=== PATIENT | male | born 1960 | race Two or more races ===

== ENCOUNTER 2022-03-22 09:54 | Inpatient (IN) | payer MEDICAID, OTHER ==
[~2022-03-22] VITALS: Ht 170.2 cm; Wt 91.7 kg
[2022-03-22] MEDS ORDERED: MORPHINE SULFATE 4 MG/ML CPJ (NOT FOR IM USE) IV ONE (11:00)
[2022-03-22 11:03] LABS: HEMATOCRIT. 36.9 % (42.0-52.0); HEMOGLOBIN. 12.2 g/dL (14.0-18.0); MEAN CORPUSCULAR VOLUME 93.5 fL (80.0-94.0); RED BLOOD CELL COUNT 3.95 mill/uL (4.7-6.1); RED CELL DISTRIBUTION WIDTH 18.5 % (11.6-14.6)
[2022-03-22 11:07] LABS: CLARITY URINE CLEAR (CLEAR); COLOR URINE YELLOW (YELLOW); KETONES URINE NEGATIVE (NEGATIVE); LEUKOCYTE ESTERASE URINE NEGATIVE (NEGATIVE); NITRITE URINE NEGATIVE (NEGATIVE); OCCULT BLOOD URINE NEGATIVE (NEGATIVE); PROTEIN URINE NEGATIVE (NEGATIVE); SPECIFIC GRAVITY URINE 1.039 (1.005-1.030); UROBILINOGEN URINE 0.2 E.U./dL (0.2-1.0)
[2022-03-22 11:07] LABS: INR 1.2; PROTHROMBIN TIME 12.7 sec (9.6-11.0)
[2022-03-22 11:09] LABS: CHLORIDE 106 mEq/L (98-107)
[2022-03-22 11:17] LABS: BETA HYDROXYBUTYRATE 0.3 mMol/L (0.0-0.3)
[2022-03-22 12:10] LABS: MEAN PLATELET VOLUME 10.2 fl (7.4-10.4); PLATELET 19 x1000/uL (130-400)
[2022-03-22 12:14] LABS: PLATELET ESTIMATE MARKEDLY DECREASED
[2022-03-22] MEDS ORDERED: CEFTRIAXONE 1 G PREMIX 50 ML IV ONE (12:30)
[2022-03-22] MEDS ORDERED: METRONIDAZOLE 500 MG PREMIX 100 ML IV ONE (12:30)
[2022-03-22] MEDS: PANTOPRAZOLE SODIUM 40 MG/VIAL IV SCH (13:53)
[2022-03-22 14:53] LABS: TOTAL IRON BINDING CAPACITY 251 ug/dL (250-450)
[2022-03-22 15:07] LABS: FERRITIN 121 ng/mL (22-322)
[2022-03-22 15:22] LABS: VITAMIN B12 SERUM >2000 pg/mL pg/mL (211-911)
[2022-03-22 16:29] LABS: HEPATITIS B SURFACE ANTIGEN NEGATIVE
[2022-03-22] MEDS ORDERED: ONDANSETRON HCL 4MG/2ML INJ IV PRN (16:30)
[2022-03-22] MEDS ORDERED: DEXTROSE 50% WATER 50ML SYRINGE IV PRN (16:30)
[2022-03-22] MEDS: HYDROCODONE/ACETAMINOPHEN 5/325MG TABLET PO PRN (17:57)
[2022-03-22] MEDS: BLOOD SUGAR DIAGNOSTIC STRIP TEST SCH ×2 (18:02→21:00)
[2022-03-22] MEDS: INSULIN LISPRO 100 UNITS/ML SUBCUT SCH ×2 (18:35→21:00)
[2022-03-22 23:15] VITALS: BP 103/61
[2022-03-22 23:52] VITALS: BP 105/92
[2022-03-23] MEDS: HYDROCODONE/ACETAMINOPHEN 5/325MG TABLET PO PRN ×5 (00:19→22:02)
[2022-03-23] MEDS ORDERED: EMPA25TA PO (03:11)
[2022-03-23] MEDS ORDERED: ATOR10TA MT (03:11)
[2022-03-23] MEDS ORDERED: GLIP10TA10 PO (03:11)
[2022-03-23] MEDS ORDERED: MIRT-111 PO (03:11)
[2022-03-23 04:26] VITALS: BP 108/48
[2022-03-23] MEDS: BLOOD SUGAR DIAGNOSTIC STRIP TEST SCH ×4 (06:53→21:31)
[2022-03-23 07:05] LABS: CHLORIDE 108 mEq/L (98-107)
[2022-03-23 08:00] VITALS: BP 111/51
[2022-03-23 08:03] LABS: HEMATOCRIT. 35.1 % (42.0-52.0); HEMOGLOBIN. 11.5 g/dL (14.0-18.0); MEAN CORPUSCULAR HEMOGLOBIN 30.8 pg (28.0-32.0); MEAN CORPUSCULAR VOLUME 93.7 fL (80.0-94.0); MEAN PLATELET VOLUME 10.7 fl (7.4-10.4); RED BLOOD CELL COUNT 3.75 mill/uL (4.7-6.1); RED CELL DISTRIBUTION WIDTH 18.7 % (11.6-14.6)
[2022-03-23 08:07] LABS: PLATELET 16 x1000/uL (130-400)
[2022-03-23] MEDS: PANTOPRAZOLE SODIUM 40 MG/VIAL IV SCH (09:11)
[2022-03-23] MEDS: INSULIN LISPRO 100 UNITS/ML SUBCUT SCH ×4 (09:26→21:31)
[2022-03-23 12:00] VITALS: BP 109/48
[2022-03-23] MEDS ORDERED: CEFTRIAXONE 1 G PREMIX 50 ML IV SCH (12:00)
[2022-03-23 16:00] VITALS: BP 107/52
[2022-03-23] MEDS: IRON SUCROSE COMPLEX 100 MG/5 ML ML IV SCH (17:58)
[2022-03-23] MEDS: CEFTRIAXONE 1,000 MG in DEXTROSE 5% WATER 50 ML IV SCH (18:56)
[2022-03-23 20:00] VITALS: BP 114/75
[2022-03-24] VITALS (16 sets, daily range): BP systolic 84–118; BP diastolic 50–76
[2022-03-24] MEDS: ACETAMINOPHEN 325MG TABLET PO PRN (00:14)
[2022-03-24] MEDS: HYDROCODONE/ACETAMINOPHEN 5/325MG TABLET PO PRN ×2 (02:53→09:04)
[2022-03-24] MEDS: BLOOD SUGAR DIAGNOSTIC STRIP TEST SCH ×4 (06:19→20:45)
[2022-03-24 06:49] LABS: HEMATOCRIT. 34.6 % (42.0-52.0); HEMOGLOBIN. 11.6 g/dL (14.0-18.0); MEAN CORPUSCULAR HEMOGLOBIN 31.4 pg (28.0-32.0); MEAN CORPUSCULAR VOLUME 93.4 fL (80.0-94.0); MEAN PLATELET VOLUME 9.9 fl (7.4-10.4); RED BLOOD CELL COUNT 3.71 mill/uL (4.7-6.1); RED CELL DISTRIBUTION WIDTH 18.2 % (11.6-14.6)
[2022-03-24 06:55] LABS: CHLORIDE 108 mEq/L (98-107)
[2022-03-24] MEDS ORDERED: ALBUMIN HUMAN 25GM/100ML (25%) IV SCH (07:00)
[2022-03-24 07:47] LABS: PLATELET 16 x1000/uL (130-400)
[2022-03-24] MEDS: INSULIN LISPRO 100 UNITS/ML SUBCUT SCH ×4 (08:05→20:52)
[2022-03-24 08:07] LABS: NUCLEATED RED BLOOD CELLS 1 /100 WBC; PLATELET ESTIMATE MARKEDLY DECREASED
[2022-03-24] MEDS: PANTOPRAZOLE SODIUM 40 MG/VIAL IV SCH (09:02)
[2022-03-24] MEDS ORDERED: NALOXONE HCL 0.4MG/ML VIAL IV PRN (10:45)
[2022-03-24] MEDS: MORPHINE SULFATE 2 MG/ML CPJ (NOT FOR IM USE) IV PRN ×3 (12:13→23:07)
[2022-03-24 12:57] LABS: PLATELET ESTIMATE MARKEDLY DECREASED
[2022-03-24] MEDS: IRON SUCROSE COMPLEX 100 MG/5 ML ML IV SCH (14:00)
[2022-03-24 16:48] LABS: HEMATOCRIT 34.8 % (42.0-52.0); HEMOGLOBIN 11.4 g/dL (14.0-18.0)
[2022-03-24 17:40] LABS: INR 1.3; PROTHROMBIN TIME 13.7 sec (9.6-11.0)
[2022-03-24] MEDS: CEFTRIAXONE 1,000 MG in DEXTROSE 5% WATER 50 ML IV SCH (17:52)
[2022-03-25 00:03] VITALS: BP 121/63
[2022-03-25 04:00] VITALS: BP 108/67
[2022-03-25] MEDS: MORPHINE SULFATE 2 MG/ML CPJ (NOT FOR IM USE) IV PRN ×4 (04:15→18:53)
[2022-03-25] MEDS: BLOOD SUGAR DIAGNOSTIC STRIP TEST SCH ×4 (05:32→21:00)
[2022-03-25] MEDS: INSULIN LISPRO 100 UNITS/ML SUBCUT SCH ×4 (05:38→20:59)
[2022-03-25 05:46] LABS: HEMATOCRIT. 35.3 % (42.0-52.0); HEMOGLOBIN. 11.8 g/dL (14.0-18.0); MEAN CORPUSCULAR HEMOGLOBIN 31.2 pg (28.0-32.0); MEAN CORPUSCULAR VOLUME 93.6 fL (80.0-94.0); MEAN PLATELET VOLUME 11.5 fl (7.4-10.4); RED BLOOD CELL COUNT 3.77 mill/uL (4.7-6.1); RED CELL DISTRIBUTION WIDTH 18.5 % (11.6-14.6)
[2022-03-25 05:52] LABS: PLATELET 25 x1000/uL (130-400)
[2022-03-25 06:06] LABS: CHLORIDE 105 mEq/L (98-107)
[2022-03-25 06:52] LABS: PLATELET ESTIMATE MARKEDLY DECREASED
[2022-03-25 08:00] VITALS: BP 105/63
[2022-03-25] MEDS: PANTOPRAZOLE SODIUM 40 MG/VIAL IV SCH (08:17)
[2022-03-25 12:00] VITALS: BP 116/69
[2022-03-25] MEDS ORDERED: DIAZEPAM 5 MG/ML 2ML CPJ IV NR (13:45)
[2022-03-25] MEDS: IRON SUCROSE COMPLEX 100 MG/5 ML ML IV SCH (15:42)
[2022-03-25 16:00] VITALS: BP 121/72
[2022-03-25] MEDS: CEFTRIAXONE 1,000 MG in DEXTROSE 5% WATER 50 ML IV SCH (18:12)
[2022-03-25 20:00] VITALS: BP 148/61
[2022-03-26] VITALS: BP 104/59
[2022-03-26 04:00] VITALS: BP 103/64
[2022-03-26] MEDS: MORPHINE SULFATE 2 MG/ML CPJ (NOT FOR IM USE) IV PRN ×6 (06:00→22:43)
[2022-03-26] MEDS: BLOOD SUGAR DIAGNOSTIC STRIP TEST SCH ×4 (06:57→20:57)
[2022-03-26] MEDS: INSULIN LISPRO 100 UNITS/ML SUBCUT SCH ×4 (07:14→20:57)
[2022-03-26 07:54] LABS: HEMATOCRIT. 34.9 % (42.0-52.0); HEMOGLOBIN. 11.5 g/dL (14.0-18.0); MEAN CORPUSCULAR HEMOGLOBIN 30.9 pg (28.0-32.0); MEAN CORPUSCULAR VOLUME 93.4 fL (80.0-94.0); MEAN PLATELET VOLUME 10.6 fl (7.4-10.4); RED BLOOD CELL COUNT 3.73 mill/uL (4.7-6.1); RED CELL DISTRIBUTION WIDTH 18.3 % (11.6-14.6)
[2022-03-26 08:00] VITALS: BP 109/71
[2022-03-26 08:07] LABS: CHLORIDE 102 mEq/L (98-107)
[2022-03-26 08:11] LABS: PLATELET 30 x1000/uL (130-400)
[2022-03-26] MEDS: PANTOPRAZOLE SODIUM 40 MG/VIAL IV SCH (08:36)
[2022-03-26] MEDS ORDERED: DIAZEPAM 5 MG/ML 2ML CPJ IV NR (09:20)
[2022-03-26 11:11] LABS: PLATELET ESTIMATE MARKEDLY DECREASED
[2022-03-26 12:00] VITALS: BP 122/71
[2022-03-26] MEDS ORDERED: DIAZEPAM 5 MG/ML 2ML CPJ IV SCH (13:45)
[2022-03-26 16:00] VITALS: BP 109/69
[2022-03-26] MEDS: CEFTRIAXONE 1,000 MG in DEXTROSE 5% WATER 50 ML IV SCH (17:16)
[2022-03-26] MEDS: ACETAMINOPHEN 325MG TABLET PO PRN (19:38)
[2022-03-26 20:00] VITALS: BP 125/72
[2022-03-27] VITALS (9 sets, daily range): BP systolic 99–136; BP diastolic 49–85
[2022-03-27] MEDS: MORPHINE SULFATE 2 MG/ML CPJ (NOT FOR IM USE) IV PRN ×4 (04:35→20:28)
[2022-03-27] MEDS: ACETAMINOPHEN 325MG TABLET PO PRN ×3 (05:44→23:33)
[2022-03-27 07:17] LABS: HEMATOCRIT. 35.8 % (42.0-52.0); HEMOGLOBIN. 11.8 g/dL (14.0-18.0); MEAN CORPUSCULAR HEMOGLOBIN 30.9 pg (28.0-32.0); MEAN CORPUSCULAR VOLUME 93.1 fL (80.0-94.0); MEAN PLATELET VOLUME 10.4 fl (7.4-10.4); RED BLOOD CELL COUNT 3.84 mill/uL (4.7-6.1); RED CELL DISTRIBUTION WIDTH 17.7 % (11.6-14.6)
[2022-03-27 07:37] LABS: CHLORIDE 102 mEq/L (98-107)
[2022-03-27] MEDS: BLOOD SUGAR DIAGNOSTIC STRIP TEST SCH ×4 (08:30→21:00)
[2022-03-27] MEDS: PANTOPRAZOLE SODIUM 40 MG/VIAL IV SCH (08:48)
[2022-03-27] MEDS: INSULIN LISPRO 100 UNITS/ML SUBCUT SCH ×4 (08:50→20:28)
[2022-03-27] MEDS ORDERED: GADOTERATE MEGLUMINE 5 MMOL/10 ML VIAL IV ONE (09:30)
[2022-03-27 13:40] LABS: PLATELET ESTIMATE MARKEDLY DECREASED
[2022-03-27 13:41] LABS: PLATELET 37 x1000/uL (130-400)
[2022-03-27] MEDS ORDERED: IPRATROPIUM/ALBUTEROL 0.5-3(2.5)MG/3ML NEB HHN PRN (14:00)
[2022-03-27] MEDS: CEFTRIAXONE 1,000 MG in DEXTROSE 5% WATER 50 ML IV SCH (17:57)
[2022-03-28] VITALS (14 sets, daily range): BP systolic 92–129; BP diastolic 56–76
[2022-03-28] MEDS: MORPHINE SULFATE 2 MG/ML CPJ (NOT FOR IM USE) IV PRN ×5 (00:36→20:57)
[2022-03-28] MEDS: BLOOD SUGAR DIAGNOSTIC STRIP TEST SCH ×4 (06:26→20:58)
[2022-03-28 07:49] LABS: INR 1.3; PROTHROMBIN TIME 13.4 sec (9.6-11.0)
[2022-03-28 07:53] LABS: CHLORIDE 100 mEq/L (98-107); HEMATOCRIT. 33.6 % (42.0-52.0); HEMOGLOBIN. 11.2 g/dL (14.0-18.0); MEAN CORPUSCULAR HEMOGLOBIN 31.4 pg (28.0-32.0); MEAN CORPUSCULAR VOLUME 93.8 fL (80.0-94.0); MEAN PLATELET VOLUME 10.3 fl (7.4-10.4); RED BLOOD CELL COUNT 3.59 mill/uL (4.7-6.1); RED CELL DISTRIBUTION WIDTH 17.6 % (11.6-14.6)
[2022-03-28] MEDS: INSULIN LISPRO 100 UNITS/ML SUBCUT SCH ×4 (08:10→20:58)
[2022-03-28 08:11] LABS: PLATELET 50 x1000/uL (130-400)
[2022-03-28] MEDS: PANTOPRAZOLE SODIUM 40 MG/VIAL IV SCH (09:30)
[2022-03-28 10:28] LABS: ATYPICAL LYMPHOCYTES 1
[2022-03-28 10:29] LABS: PLATELET ESTIMATE DECREASED
[2022-03-28] MEDS: SODIUM CHLORIDE 0.9% 1,000 ML IV SCH (11:20)
[2022-03-28] MEDS: ACETAMINOPHEN 325MG TABLET PO PRN (11:20)
[2022-03-28] MEDS: CEFTRIAXONE 1,000 MG in DEXTROSE 5% WATER 50 ML IV SCH (17:13)
[2022-03-29] VITALS (30 sets, daily range): BP systolic 98–157; BP diastolic 50–98
[2022-03-29] MEDS: ACETAMINOPHEN 325MG TABLET PO PRN (00:30)
[2022-03-29] MEDS: MORPHINE SULFATE 2 MG/ML CPJ (NOT FOR IM USE) IV PRN ×2 (01:01→05:25)
[2022-03-29] MEDS: SODIUM CHLORIDE 0.9% 1,000 ML IV SCH ×3 (01:01→23:49)
[2022-03-29 05:58] LABS: HEMATOCRIT. 33.3 % (42.0-52.0); HEMOGLOBIN. 11.1 g/dL (14.0-18.0); MEAN CORPUSCULAR HEMOGLOBIN 31.3 pg (28.0-32.0); MEAN CORPUSCULAR VOLUME 93.9 fL (80.0-94.0); PLATELET 55 x1000/uL (130-400); RED BLOOD CELL COUNT 3.55 mill/uL (4.7-6.1); RED CELL DISTRIBUTION WIDTH 17.7 % (11.6-14.6)
[2022-03-29 06:07] LABS: CHLORIDE 99 mEq/L (98-107)
[2022-03-29] MEDS ORDERED: THROMBIN (BOVINE) 5000 UNITS/VIAL TOP ONE (06:34)
[2022-03-29] MEDS ORDERED: LIDOCAINE HCL/EPINEPHRINE 1%-EPI 1:100,000 20 ML VIAL ONE (06:34)
[2022-03-29] MEDS ORDERED: GENTAMICIN SULF 40MG/ML 2ML VIAL ONE (06:34)
[2022-03-29] MEDS: BLOOD SUGAR DIAGNOSTIC STRIP TEST SCH ×4 (06:41→21:32)
[2022-03-29] MEDS ORDERED: PROPOFOL 10MG/ML 100ML 200 ML IV ONE (07:02)
[2022-03-29] MEDS ORDERED: ROCURONIUM BROMIDE 10MG/ML VIAL 5ML IV ONE (07:02)
[2022-03-29] MEDS ORDERED: ONDANSETRON HCL 4MG/2ML INJ ONE (07:02)
[2022-03-29] MEDS ORDERED: NEOSTIGMINE METHYLSULFATE 1MG/ML 10 ML VIAL ONE (07:02)
[2022-03-29] MEDS ORDERED: DEXAMETHASONE 4MG/ML 1ML VIAL ONE (07:02)
[2022-03-29] MEDS ORDERED: FENTANYL CITRATE/PF 50MCG/ML 2ML VIAL ONE (07:03)
[2022-03-29] MEDS ORDERED: GLYCOPYRROLATE 0.2 MG/ML 2ML VIAL ONE ×2 (07:03)
[2022-03-29] MEDS ORDERED: MIDAZOLAM HCL 2 MG/2 ML VIAL ONE (07:03)
[2022-03-29] MEDS ORDERED: PROPOFOL 200MG/20ML VIAL IV ONE (07:16)
[2022-03-29] MEDS: INSULIN LISPRO 100 UNITS/ML SUBCUT SCH ×4 (08:10→21:42)
[2022-03-29] MEDS ORDERED: MEPERIDINE HCL/PF 25MG/ML CPJ IV PRN (09:00)
[2022-03-29] MEDS ORDERED: LABETALOL 5MG/ML SYR 20 MG/4 ML SYRINGE IV PRN (09:00)
[2022-03-29] MEDS: PANTOPRAZOLE SODIUM 40 MG/VIAL IV SCH (09:00)
[2022-03-29] MEDS ORDERED: HYDROMORPHONE HCL/PF 2MG/ML CPJ IV PRN (09:00)
[2022-03-29] MEDS ORDERED: ONDANSETRON HCL 4MG/2ML INJ IV PRN (09:00)
[2022-03-29] MEDS ORDERED: HYDROMORPHONE HCL/PF 2MG/ML CPJ ONE (09:13)
[2022-03-29 11:26] LABS: HEMATOCRIT. 34.9 % (42.0-52.0); HEMOGLOBIN. 11.4 g/dL (14.0-18.0); MEAN CORPUSCULAR HEMOGLOBIN 30.9 pg (28.0-32.0); MEAN CORPUSCULAR VOLUME 94.5 fL (80.0-94.0); MEAN PLATELET VOLUME 10.1 fl (7.4-10.4); PLATELET 76 x1000/uL (130-400); RED CELL DISTRIBUTION WIDTH 17.5 % (11.6-14.6)
[2022-03-29 14:00] LABS: PLATELET ESTIMATE DECREASED
[2022-03-29 14:41] LABS: PLATELET ESTIMATE DECREASED
[2022-03-29] MEDS: MORPHINE SULFATE 4 MG/ML CPJ (NOT FOR IM USE) IV PRN ×4 (15:07→23:43)
[2022-03-29] MEDS: CEFTRIAXONE 1,000 MG in DEXTROSE 5% WATER 50 ML IV SCH (17:08)
[2022-03-29] MEDS: HYDROCODONE/ACETAMINOPHEN 5/325MG TABLET PO PRN (20:24)
[2022-03-29] MEDS ORDERED: HYDRALAZINE 20MG/ML VIAL IV PRN (21:00)
[2022-03-29] MEDS ORDERED: CLONIDINE 0.1MG TABLET PO PRN (21:00)
[2022-03-29] MEDS: INSULIN GLARGINE 100 UNITS/ML SUBCUT SCH (21:43)
[2022-03-30] VITALS (38 sets, daily range): BP systolic 100–150; BP diastolic 55–97
[2022-03-30] MEDS: HYDROCODONE/ACETAMINOPHEN 5/325MG TABLET PO PRN (01:38)
[2022-03-30] MEDS: MORPHINE SULFATE 4 MG/ML CPJ (NOT FOR IM USE) IV PRN ×7 (02:28→23:41)
[2022-03-30 05:39] LABS: HEMATOCRIT. 32.8 % (42.0-52.0); HEMOGLOBIN. 10.7 g/dL (14.0-18.0); MEAN CORPUSCULAR HEMOGLOBIN 31.7 pg (28.0-32.0); MEAN PLATELET VOLUME 10.1 fl (7.4-10.4); PLATELET 61 x1000/uL (130-400); RED BLOOD CELL COUNT 3.38 mill/uL (4.7-6.1); RED CELL DISTRIBUTION WIDTH 18.2 % (11.6-14.6)
[2022-03-30 06:05] LABS: CHLORIDE 100 mEq/L (98-107)
[2022-03-30] MEDS: BLOOD SUGAR DIAGNOSTIC STRIP TEST SCH ×4 (06:30→20:38)
[2022-03-30] MEDS: INSULIN LISPRO 100 UNITS/ML SUBCUT SCH ×4 (07:25→21:04)
[2022-03-30] MEDS: PANTOPRAZOLE SODIUM 40 MG/VIAL IV SCH (09:39)
[2022-03-30] MEDS: INSULIN GLARGINE 100 UNITS/ML SUBCUT SCH ×2 (09:40→21:04)
[2022-03-30 10:23] LABS: PLATELET ESTIMATE DECREASED
[2022-03-30] MEDS ORDERED: DIAZEPAM 5 MG TABLET PO SCH (12:30)
[2022-03-30] MEDS: CEFTRIAXONE 1,000 MG in DEXTROSE 5% WATER 50 ML IV SCH (17:01)
[2022-03-31] VITALS: BP 110/70
[2022-03-31] MEDS: MORPHINE SULFATE 4 MG/ML CPJ (NOT FOR IM USE) IV PRN ×4 (01:54→12:56)
[2022-03-31 04:00] VITALS: BP 115/72
[2022-03-31] MEDS ORDERED: SPIR100T5 PO (06:33)
[2022-03-31] MEDS ORDERED: LACT10SO7 MT (06:33)
[2022-03-31] MEDS: BLOOD SUGAR DIAGNOSTIC STRIP TEST SCH ×4 (06:40→20:16)
[2022-03-31 07:00] LABS: BASOPHILS % 0.3 % (0.0-2.0); HEMATOCRIT. 32.1 % (42.0-52.0); HEMOGLOBIN. 10.7 g/dL (14.0-18.0); LYMPHOCYTES % 7.3 % (20.0-50.0); MEAN CORPUSCULAR HEMOGLOBIN 32.2 pg (28.0-32.0); MEAN CORPUSCULAR VOLUME 96.1 fL (80.0-94.0); MEAN PLATELET VOLUME 11.7 fl (7.4-10.4); MONOCYTES % 6.2 % (2.0-8.0); NEUTROPHILS % 85.2 % (40.0-76.0); PLATELET 100 x1000/uL (130-400); RED BLOOD CELL COUNT 3.34 mill/uL (4.7-6.1); RED CELL DISTRIBUTION WIDTH 18.6 % (11.6-14.6)
[2022-03-31 07:02] LABS: CHLORIDE 101 mEq/L (98-107)
[2022-03-31 08:00] VITALS: BP 110/60
[2022-03-31] MEDS: PANTOPRAZOLE SODIUM 40 MG/VIAL IV SCH (08:56)
[2022-03-31] MEDS: INSULIN LISPRO 100 UNITS/ML SUBCUT SCH ×4 (09:13→22:08)
[2022-03-31] MEDS ORDERED: FUROSEMIDE 40MG TABLET PO SCH (11:15)
[2022-03-31 12:00] VITALS: BP 118/75
[2022-03-31] MEDS: SPIRONOLACTONE 50MG TABLET PO SCH ×2 (12:46→17:20)
[2022-03-31] MEDS: INSULIN GLARGINE 100 UNITS/ML SUBCUT SCH ×2 (13:00→22:09)
[2022-03-31] MEDS: CARVEDILOL 3.125 MG TABLET PO SCH ×2 (15:30→22:07)
[2022-03-31 16:00] VITALS: BP 118/75
[2022-03-31] MEDS ORDERED: NALOXONE HCL 0.4MG/ML VIAL IV PRN (17:00)
[2022-03-31] MEDS: CEFTRIAXONE 1,000 MG in DEXTROSE 5% WATER 50 ML IV SCH (18:57)
[2022-03-31] MEDS: MORPHINE SULFATE 2 MG/ML CPJ (NOT FOR IM USE) IV PRN ×2 (18:59→23:03)
[2022-03-31 20:00] VITALS: BP 126/74
[2022-04-01] VITALS: BP 127/74
[2022-04-01] MEDS: MORPHINE SULFATE 2 MG/ML CPJ (NOT FOR IM USE) IV PRN ×5 (03:42→22:16)
[2022-04-01 04:00] VITALS: BP 120/68
[2022-04-01 06:25] LABS: CHLORIDE 101 mEq/L (98-107)
[2022-04-01 06:30] LABS: BASOPHILS % 0.4 % (0.0-2.0); EOSINOPHILS % 2.4 % (0.0-5.0); HEMATOCRIT. 33.7 % (42.0-52.0); HEMOGLOBIN. 11.4 g/dL (14.0-18.0); LYMPHOCYTES % 11.1 % (20.0-50.0); MEAN CORPUSCULAR VOLUME 94.5 fL (80.0-94.0); MEAN PLATELET VOLUME 9.7 fl (7.4-10.4); MONOCYTES % 8.8 % (2.0-8.0); NEUTROPHILS % 77.3 % (40.0-76.0); PLATELET 61 x1000/uL (130-400); RED BLOOD CELL COUNT 3.57 mill/uL (4.7-6.1); RED CELL DISTRIBUTION WIDTH 18.3 % (11.6-14.6)
[2022-04-01] MEDS: BLOOD SUGAR DIAGNOSTIC STRIP TEST SCH ×4 (06:57→21:00)
[2022-04-01 09:00] VITALS: BP 111/73
[2022-04-01] MEDS: PANTOPRAZOLE SODIUM 40 MG/VIAL IV SCH (09:19)
[2022-04-01] MEDS: SPIRONOLACTONE 50MG TABLET PO SCH ×3 (09:20→17:21)
[2022-04-01] MEDS: CARVEDILOL 3.125 MG TABLET PO SCH ×2 (09:20→22:16)
[2022-04-01] MEDS: INSULIN LISPRO 100 UNITS/ML SUBCUT SCH ×4 (09:22→22:15)
[2022-04-01] MEDS: INSULIN GLARGINE 100 UNITS/ML SUBCUT SCH ×2 (09:22→22:15)
[2022-04-01 12:00] VITALS: BP 103/64
[2022-04-01] MEDS: HYDROCORTISONE 2.5% OINT 20GM TOP SCH ×2 (13:27→22:15)
[2022-04-01 16:00] VITALS: BP 119/70
[2022-04-01] MEDS: CEFTRIAXONE 1,000 MG in DEXTROSE 5% WATER 50 ML IV SCH (17:28)
[2022-04-02] VITALS: BP 111/60
[2022-04-02] MEDS: MORPHINE SULFATE 2 MG/ML CPJ (NOT FOR IM USE) IV PRN ×5 (02:54→21:17)
[2022-04-02 04:00] VITALS: BP 95/57
[2022-04-02] MEDS: BLOOD SUGAR DIAGNOSTIC STRIP TEST SCH ×4 (06:37→21:20)
[2022-04-02 07:09] LABS: BASOPHILS % 0.5 % (0.0-2.0); EOSINOPHILS % 2.1 % (0.0-5.0); HEMATOCRIT. 34.1 % (42.0-52.0); HEMOGLOBIN. 11.4 g/dL (14.0-18.0); LYMPHOCYTES % 12.9 % (20.0-50.0); MEAN CORPUSCULAR HEMOGLOBIN 31.8 pg (28.0-32.0); MEAN CORPUSCULAR VOLUME 94.8 fL (80.0-94.0); MEAN PLATELET VOLUME 9.5 fl (7.4-10.4); MONOCYTES % 9.3 % (2.0-8.0); NEUTROPHILS % 75.2 % (40.0-76.0); PLATELET 61 x1000/uL (130-400); RED CELL DISTRIBUTION WIDTH 17.8 % (11.6-14.6)
[2022-04-02 07:10] LABS: CHLORIDE 101 mEq/L (98-107)
[2022-04-02 08:00] VITALS: BP 101/60
[2022-04-02] MEDS: CARVEDILOL 3.125 MG TABLET PO SCH ×2 (08:10→21:00)
[2022-04-02] MEDS: INSULIN GLARGINE 100 UNITS/ML SUBCUT SCH ×2 (09:02→21:19)
[2022-04-02] MEDS: INSULIN LISPRO 100 UNITS/ML SUBCUT SCH ×4 (09:02→21:20)
[2022-04-02] MEDS: HYDROCORTISONE 2.5% OINT 20GM TOP SCH ×2 (09:03→21:20)
[2022-04-02] MEDS: SPIRONOLACTONE 50MG TABLET PO SCH ×3 (09:03→17:10)
[2022-04-02] MEDS: PANTOPRAZOLE SODIUM 40 MG/VIAL IV SCH (09:03)
[2022-04-02] MEDS: CEFTRIAXONE 1,000 MG in DEXTROSE 5% WATER 50 ML IV SCH (09:11)
[2022-04-02 12:30] VITALS: BP 110/68
[2022-04-02 16:30] VITALS: BP 102/65
[2022-04-02] MEDS ORDERED: CEFTRIAXONE 1 G PREMIX 50 ML IV SCH (18:50)
[2022-04-02 19:48] VITALS: BP 106/72
[2022-04-03] VITALS: BP 108/67
[2022-04-03] MEDS: MORPHINE SULFATE 2 MG/ML CPJ (NOT FOR IM USE) IV PRN ×3 (02:44→20:37)
[2022-04-03 04:00] VITALS: BP 109/63
[2022-04-03] MEDS: BLOOD SUGAR DIAGNOSTIC STRIP TEST SCH ×4 (06:22→21:07)
[2022-04-03 06:37] LABS: BASOPHILS % 0.7 % (0.0-2.0); EOSINOPHILS % 3.7 % (0.0-5.0); HEMATOCRIT. 32.9 % (42.0-52.0); HEMOGLOBIN. 11.1 g/dL (14.0-18.0); LYMPHOCYTES % 14.6 % (20.0-50.0); MEAN CORPUSCULAR VOLUME 94.5 fL (80.0-94.0); MEAN PLATELET VOLUME 9.3 fl (7.4-10.4); RED BLOOD CELL COUNT 3.48 mill/uL (4.7-6.1); RED CELL DISTRIBUTION WIDTH 18.2 % (11.6-14.6)
[2022-04-03 07:06] LABS: CHLORIDE 103 mEq/L (98-107)
[2022-04-03] MEDS: INSULIN LISPRO 100 UNITS/ML SUBCUT SCH ×4 (07:50→21:06)
[2022-04-03] MEDS: CARVEDILOL 3.125 MG TABLET PO SCH ×2 (07:53→21:00)
[2022-04-03] MEDS: PANTOPRAZOLE SODIUM 40 MG/VIAL IV SCH (07:53)
[2022-04-03] MEDS: CEFTRIAXONE 1,000 MG in DEXTROSE 5% WATER 50 ML IV SCH (07:53)
[2022-04-03 08:00] VITALS: BP 107/70
[2022-04-03 08:17] LABS: PLATELET 47 x1000/uL (130-400)
[2022-04-03] MEDS: SPIRONOLACTONE 50MG TABLET PO SCH ×3 (09:00→19:52)
[2022-04-03] MEDS: INSULIN GLARGINE 100 UNITS/ML SUBCUT SCH ×2 (10:00→21:06)
[2022-04-03] MEDS: HYDROCORTISONE 2.5% OINT 20GM TOP SCH ×2 (10:29→21:07)
[2022-04-03 12:00] VITALS: BP 110/73
[2022-04-03] MEDS ORDERED: SODIUM BICARBONATE 4% (2.4MEQ) 5ML VIAL IV ONE (12:40)
[2022-04-03] MEDS ORDERED: LIDOCAINE HCL/PF 1% 10 MG/ML 5ML VIAL ONE (12:40)
[2022-04-03] MEDS: HYDROCODONE/ACETAMINOPHEN 5/325MG TABLET PO PRN (14:38)
[2022-04-03 16:00] VITALS: BP 110/73
[2022-04-03 20:00] VITALS: BP 100/56
[2022-04-04] VITALS: BP 108/59
[2022-04-04] MEDS: HYDROCODONE/ACETAMINOPHEN 5/325MG TABLET PO PRN ×5 (00:35→22:02)
[2022-04-04 04:00] VITALS: BP 107/61
[2022-04-04] MEDS: MORPHINE SULFATE 2 MG/ML CPJ (NOT FOR IM USE) IV PRN ×3 (06:10→19:59)
[2022-04-04] MEDS: BLOOD SUGAR DIAGNOSTIC STRIP TEST SCH ×4 (06:55→20:07)
[2022-04-04 08:00] VITALS: BP 104/59
[2022-04-04 08:24] LABS: BASOPHILS % 0.6 % (0.0-2.0); HEMOGLOBIN. 11.5 g/dL (14.0-18.0); LYMPHOCYTES % 15.1 % (20.0-50.0); MEAN CORPUSCULAR VOLUME 94.4 fL (80.0-94.0); MEAN PLATELET VOLUME 9.9 fl (7.4-10.4); MONOCYTES % 10.9 % (2.0-8.0); NEUTROPHILS % 70.4 % (40.0-76.0); RED CELL DISTRIBUTION WIDTH 18.4 % (11.6-14.6)
[2022-04-04 08:41] LABS: PLATELET 46 x1000/uL (130-400)
[2022-04-04 08:58] LABS: CHLORIDE 101 mEq/L (98-107)
[2022-04-04] MEDS: HYDROCORTISONE 2.5% CREAM 20GM TOP SCH ×2 (09:00→21:46)
[2022-04-04] MEDS: CARVEDILOL 3.125 MG TABLET PO SCH ×2 (09:00→20:11)
[2022-04-04] MEDS: INSULIN LISPRO 100 UNITS/ML SUBCUT SCH ×4 (09:06→21:00)
[2022-04-04] MEDS: INSULIN GLARGINE 100 UNITS/ML SUBCUT SCH ×2 (09:07→21:47)
[2022-04-04] MEDS: CEFTRIAXONE 1,000 MG in DEXTROSE 5% WATER 50 ML IV SCH (09:11)
[2022-04-04] MEDS: PANTOPRAZOLE SODIUM 40 MG/VIAL IV SCH (09:11)
[2022-04-04] MEDS: SPIRONOLACTONE 50MG TABLET PO SCH ×3 (09:12→17:04)
[2022-04-04 12:00] VITALS: BP 109/72
[2022-04-04 16:00] VITALS: BP 104/67
[2022-04-04 20:00] VITALS: BP 105/57
[2022-04-05] VITALS: BP 113/62
[2022-04-05] MEDS: HYDROCODONE/ACETAMINOPHEN 5/325MG TABLET PO PRN ×2 (03:10→20:05)
[2022-04-05 04:00] VITALS: BP 108/58
[2022-04-05 06:13] LABS: CHLORIDE 104 mEq/L (98-107)
[2022-04-05 06:21] LABS: BASOPHILS % 1.1 % (0.0-2.0); EOSINOPHILS % 3.4 % (0.0-5.0); HEMATOCRIT. 33.9 % (42.0-52.0); HEMOGLOBIN. 11.2 g/dL (14.0-18.0); LYMPHOCYTES % 16.8 % (20.0-50.0); MEAN CORPUSCULAR HEMOGLOBIN 31.9 pg (28.0-32.0); MEAN CORPUSCULAR VOLUME 96.6 fL (80.0-94.0); MEAN PLATELET VOLUME 10.3 fl (7.4-10.4); MONOCYTES % 14.1 % (2.0-8.0); NEUTROPHILS % 64.6 % (40.0-76.0); RED BLOOD CELL COUNT 3.51 mill/uL (4.7-6.1); RED CELL DISTRIBUTION WIDTH 18.7 % (11.6-14.6)
[2022-04-05] MEDS: BLOOD SUGAR DIAGNOSTIC STRIP TEST SCH ×4 (06:29→22:02)
[2022-04-05 06:36] LABS: PLATELET 45 x1000/uL (130-400)
[2022-04-05] MEDS: MORPHINE SULFATE 2 MG/ML CPJ (NOT FOR IM USE) IV PRN ×4 (06:37→23:25)
[2022-04-05 08:00] VITALS: BP 109/65
[2022-04-05] MEDS: CARVEDILOL 3.125 MG TABLET PO SCH ×2 (09:00→21:57)
[2022-04-05] MEDS: INSULIN GLARGINE 100 UNITS/ML SUBCUT SCH ×2 (09:20→22:30)
[2022-04-05] MEDS: CEFTRIAXONE 1,000 MG in DEXTROSE 5% WATER 50 ML IV SCH (09:21)
[2022-04-05] MEDS: INSULIN LISPRO 100 UNITS/ML SUBCUT SCH ×4 (09:21→22:29)
[2022-04-05] MEDS: SPIRONOLACTONE 50MG TABLET PO SCH ×3 (09:22→17:05)
[2022-04-05] MEDS: PANTOPRAZOLE SODIUM 40 MG/VIAL IV SCH (09:24)
[2022-04-05] MEDS: HYDROCORTISONE 2.5% CREAM 20GM TOP SCH ×2 (09:27→21:57)
[2022-04-05 12:00] VITALS: BP 124/73
[2022-04-05 16:00] VITALS: BP 116/70
[2022-04-05 20:00] VITALS: BP 114/68
[2022-04-05] MEDS: ZOLPIDEM TARTRATE 5MG TABLET PO PRN (23:04)
[2022-04-06] VITALS: BP 108/71
[2022-04-06] MEDS: HYDROCODONE/ACETAMINOPHEN 5/325MG TABLET PO PRN ×2 (03:41→08:38)
[2022-04-06 04:00] VITALS: BP 114/69
[2022-04-06] MEDS: BLOOD SUGAR DIAGNOSTIC STRIP TEST SCH ×4 (06:30→21:12)
[2022-04-06] MEDS: MORPHINE SULFATE 2 MG/ML CPJ (NOT FOR IM USE) IV PRN ×3 (06:31→17:06)
[2022-04-06 06:37] LABS: INR 1.4; PROTHROMBIN TIME 14.2 sec (9.6-11.0)
[2022-04-06 06:38] LABS: HEMATOCRIT. 33.3 % (42.0-52.0); HEMOGLOBIN. 11.2 g/dL (14.0-18.0); MEAN CORPUSCULAR VOLUME 95.4 fL (80.0-94.0); MEAN PLATELET VOLUME 10.4 fl (7.4-10.4); RED BLOOD CELL COUNT 3.49 mill/uL (4.7-6.1); RED CELL DISTRIBUTION WIDTH 18.2 % (11.6-14.6)
[2022-04-06 06:45] LABS: PLATELET 24 x1000/uL (130-400)
[2022-04-06 08:00] VITALS: BP 101/69
[2022-04-06 08:19] LABS: PLATELET ESTIMATE MARKEDLY DECREASED
[2022-04-06 08:36] LABS: CHLORIDE 98 mEq/L (98-107)
[2022-04-06] MEDS: SPIRONOLACTONE 50MG TABLET PO SCH ×3 (08:38→17:07)
[2022-04-06] MEDS: PANTOPRAZOLE SODIUM 40 MG/VIAL IV SCH (08:38)
[2022-04-06] MEDS: CARVEDILOL 3.125 MG TABLET PO SCH ×2 (08:39→21:10)
[2022-04-06] MEDS: INSULIN LISPRO 100 UNITS/ML SUBCUT SCH ×4 (08:41→21:11)
[2022-04-06] MEDS: CEFTRIAXONE 1,000 MG in DEXTROSE 5% WATER 50 ML IV SCH (08:41)
[2022-04-06] MEDS: HYDROCORTISONE 2.5% CREAM 20GM TOP SCH (08:47)
[2022-04-06] MEDS: INSULIN GLARGINE 100 UNITS/ML SUBCUT SCH ×2 (09:13→21:11)
[2022-04-06 12:00] VITALS: BP 104/70
[2022-04-06 15:56] LABS: PLATELET ESTIMATE MARKEDLY DECREASED
[2022-04-06 16:00] VITALS: BP 108/71
[2022-04-06 20:00] VITALS: BP 114/68
[2022-04-06] MEDS: HYDROCODONE/ACETAMINOPHEN 10/325MG TABLET PO PRN (21:04)
[2022-04-07] VITALS: BP 105/71
[2022-04-07] MEDS: ZOLPIDEM TARTRATE 5MG TABLET PO PRN ×2 (00:38→21:45)
[2022-04-07] MEDS: MORPHINE SULFATE 2 MG/ML CPJ (NOT FOR IM USE) IV PRN ×3 (00:39→21:45)
[2022-04-07 04:00] VITALS: BP 120/70
[2022-04-07] MEDS: HYDROCODONE/ACETAMINOPHEN 10/325MG TABLET PO PRN ×3 (05:00→18:53)
[2022-04-07] MEDS: BLOOD SUGAR DIAGNOSTIC STRIP TEST SCH ×4 (06:47→21:56)
[2022-04-07 06:48] LABS: HEMATOCRIT. 32.7 % (42.0-52.0); HEMOGLOBIN. 11.2 g/dL (14.0-18.0); MEAN CORPUSCULAR HEMOGLOBIN 32.2 pg (28.0-32.0); RED BLOOD CELL COUNT 3.48 mill/uL (4.7-6.1); RED CELL DISTRIBUTION WIDTH 18.3 % (11.6-14.6)
[2022-04-07 06:56] LABS: PLATELET 41 x1000/uL (130-400)
[2022-04-07 06:57] LABS: CHLORIDE 99 mEq/L (98-107)
[2022-04-07 08:00] VITALS: BP 107/67
[2022-04-07] MEDS: CARVEDILOL 3.125 MG TABLET PO SCH ×2 (08:06→21:44)
[2022-04-07] MEDS: INSULIN LISPRO 100 UNITS/ML SUBCUT SCH ×4 (08:17→21:47)
[2022-04-07] MEDS: PANTOPRAZOLE SODIUM 40 MG/VIAL IV SCH (08:19)
[2022-04-07] MEDS: SPIRONOLACTONE 50MG TABLET PO SCH ×3 (08:20→17:22)
[2022-04-07] MEDS: CEFTRIAXONE 1,000 MG in DEXTROSE 5% WATER 50 ML IV SCH (08:20)
[2022-04-07] MEDS: HYDROCODONE/ACETAMINOPHEN 5/325MG TABLET PO PRN ×2 (08:22→17:43)
[2022-04-07] MEDS: INSULIN GLARGINE 100 UNITS/ML SUBCUT SCH ×2 (10:00→21:48)
[2022-04-07 11:48] VITALS: BP 108/67
[2022-04-07 16:00] VITALS: BP 109/74
[2022-04-07 17:59] LABS: PLATELET ESTIMATE MARKEDLY DECREASED
[2022-04-07 20:00] VITALS: BP 119/78
[2022-04-08] VITALS: BP 105/62
[2022-04-08] MEDS: HYDROCODONE/ACETAMINOPHEN 10/325MG TABLET PO PRN ×3 (03:29→21:31)
[2022-04-08 04:00] VITALS: BP 110/66
[2022-04-08] MEDS: BLOOD SUGAR DIAGNOSTIC STRIP TEST SCH ×4 (06:20→21:43)
[2022-04-08 07:57] LABS: HEMATOCRIT. 33.9 % (42.0-52.0); HEMOGLOBIN. 11.4 g/dL (14.0-18.0); MEAN CORPUSCULAR HEMOGLOBIN 32.1 pg (28.0-32.0); MEAN CORPUSCULAR VOLUME 94.9 fL (80.0-94.0); MEAN PLATELET VOLUME 10.6 fl (7.4-10.4); RED BLOOD CELL COUNT 3.57 mill/uL (4.7-6.1); RED CELL DISTRIBUTION WIDTH 18.1 % (11.6-14.6)
[2022-04-08 08:00] VITALS: BP 109/66
[2022-04-08 08:05] LABS: CHLORIDE 101 mEq/L (98-107)
[2022-04-08 08:13] LABS: PLATELET 29 x1000/uL (130-400)
[2022-04-08] MEDS: PANTOPRAZOLE SODIUM 40 MG/VIAL IV SCH (08:49)
[2022-04-08] MEDS: CARVEDILOL 3.125 MG TABLET PO SCH ×2 (08:50→21:32)
[2022-04-08] MEDS: HYDROCODONE/ACETAMINOPHEN 5/325MG TABLET PO PRN (08:51)
[2022-04-08] MEDS: SPIRONOLACTONE 50MG TABLET PO SCH ×3 (08:51→18:01)
[2022-04-08 08:56] LABS: ATYPICAL LYMPHOCYTES 1; PLATELET ESTIMATE MARKEDLY DECREASED
[2022-04-08] MEDS: INSULIN LISPRO 100 UNITS/ML SUBCUT SCH ×4 (09:15→21:40)
[2022-04-08] MEDS: INSULIN GLARGINE 100 UNITS/ML SUBCUT SCH ×2 (10:18→21:41)
[2022-04-08 12:00] VITALS: BP 103/67
[2022-04-08] MEDS: CEFTRIAXONE 1,000 MG in DEXTROSE 5% WATER 50 ML IV SCH (12:46)
[2022-04-08 21:04] VITALS: BP 131/75
[2022-04-08] MEDS: ZOLPIDEM TARTRATE 5MG TABLET PO PRN (21:32)
[2022-04-09 00:40] VITALS: BP 110/66
[2022-04-09] MEDS: HYDROCODONE/ACETAMINOPHEN 10/325MG TABLET PO PRN ×3 (03:37→22:18)
[2022-04-09 04:42] VITALS: BP 102/65
[2022-04-09 07:30] LABS: HEMATOCRIT. 33.7 % (42.0-52.0); HEMOGLOBIN. 11.7 g/dL (14.0-18.0); MEAN CORPUSCULAR HEMOGLOBIN 32.2 pg (28.0-32.0); MEAN CORPUSCULAR VOLUME 92.9 fL (80.0-94.0); MEAN PLATELET VOLUME 10.6 fl (7.4-10.4); RED BLOOD CELL COUNT 3.63 mill/uL (4.7-6.1)
[2022-04-09 07:42] LABS: CHLORIDE 101 mEq/L (98-107)
[2022-04-09] MEDS: INSULIN LISPRO 100 UNITS/ML SUBCUT SCH ×4 (07:50→22:37)
[2022-04-09 08:10] LABS: PLATELET 28 x1000/uL (130-400)
[2022-04-09] MEDS: BLOOD SUGAR DIAGNOSTIC STRIP TEST SCH ×4 (08:18→21:00)
[2022-04-09] MEDS: CEFTRIAXONE 1,000 MG in DEXTROSE 5% WATER 50 ML IV SCH (09:03)
[2022-04-09] MEDS: SPIRONOLACTONE 50MG TABLET PO SCH ×3 (09:04→18:11)
[2022-04-09] MEDS: CARVEDILOL 3.125 MG TABLET PO SCH ×2 (09:04→22:34)
[2022-04-09] MEDS: PANTOPRAZOLE SODIUM 40 MG/VIAL IV SCH (09:05)
[2022-04-09 09:52] LABS: PLATELET ESTIMATE MARKEDLY DECREASED
[2022-04-09] MEDS: INSULIN GLARGINE 100 UNITS/ML SUBCUT SCH ×2 (10:00→22:37)
[2022-04-09] MEDS ORDERED: HYDRALAZINE 10 MG in SODIUM CHLORIDE 0.9% 49.5 ML IV PRN (15:15)
[2022-04-09] MEDS ORDERED: NALOXONE HCL 0.4MG/ML VIAL IV PRN (15:30)
[2022-04-09 20:00] VITALS: BP 128/74
[2022-04-09] MEDS: ZOLPIDEM TARTRATE 5MG TABLET PO PRN (22:34)
[2022-04-10 04:00] VITALS: BP 111/68
[2022-04-10] MEDS: HYDROCODONE/ACETAMINOPHEN 10/325MG TABLET PO PRN ×3 (06:02→20:58)
[2022-04-10 06:36] LABS: CHLORIDE 101 mEq/L (98-107)
[2022-04-10] MEDS: BLOOD SUGAR DIAGNOSTIC STRIP TEST SCH ×4 (06:47→21:00)
[2022-04-10 06:52] LABS: BASOPHILS % 0.9 % (0.0-2.0); EOSINOPHILS % 3.5 % (0.0-5.0); HEMATOCRIT. 34.9 % (42.0-52.0); HEMOGLOBIN. 11.8 g/dL (14.0-18.0); LYMPHOCYTES % 19.8 % (20.0-50.0); MEAN CORPUSCULAR HEMOGLOBIN 31.5 pg (28.0-32.0); MEAN CORPUSCULAR VOLUME 93.4 fL (80.0-94.0); MEAN PLATELET VOLUME 10.9 fl (7.4-10.4); MONOCYTES % 14.7 % (2.0-8.0); NEUTROPHILS % 61.1 % (40.0-76.0); RED BLOOD CELL COUNT 3.73 mill/uL (4.7-6.1); RED CELL DISTRIBUTION WIDTH 18.2 % (11.6-14.6)
[2022-04-10 08:00] VITALS: BP 102/62
[2022-04-10] MEDS: CEFTRIAXONE 1,000 MG in DEXTROSE 5% WATER 50 ML IV SCH (08:35)
[2022-04-10] MEDS: PANTOPRAZOLE SODIUM 40 MG/VIAL IV SCH (08:36)
[2022-04-10] MEDS: INSULIN LISPRO 100 UNITS/ML SUBCUT SCH ×4 (08:55→21:00)
[2022-04-10] MEDS: CARVEDILOL 3.125 MG TABLET PO SCH ×2 (08:56→20:58)
[2022-04-10] MEDS: SPIRONOLACTONE 50MG TABLET PO SCH ×3 (08:56→18:26)
[2022-04-10 09:31] LABS: PLATELET ESTIMATE MARKEDLY DECREASED
[2022-04-10 09:32] LABS: PLATELET 32 x1000/uL (130-400)
[2022-04-10] MEDS: INSULIN GLARGINE 100 UNITS/ML SUBCUT SCH ×2 (10:43→22:00)
[2022-04-10 12:00] VITALS: BP 102/68
[2022-04-10 16:00] VITALS: BP 112/63
[2022-04-10 20:00] VITALS: BP 121/73
[2022-04-10] MEDS: ZOLPIDEM TARTRATE 5MG TABLET PO PRN (20:58)
[2022-04-11] VITALS: BP 97/57
[2022-04-11] MEDS: HYDROCODONE/ACETAMINOPHEN 10/325MG TABLET PO PRN ×4 (03:22→22:47)
[2022-04-11 04:00] VITALS: BP 117/71
[2022-04-11] MEDS: BLOOD SUGAR DIAGNOSTIC STRIP TEST SCH ×4 (06:30→21:00)
[2022-04-11 07:45] LABS: BASOPHILS % 1.2 % (0.0-2.0); EOSINOPHILS % 5.1 % (0.0-5.0); HEMATOCRIT. 34.8 % (42.0-52.0); LYMPHOCYTES % 18.1 % (20.0-50.0); MEAN CORPUSCULAR VOLUME 93.1 fL (80.0-94.0); MEAN PLATELET VOLUME 9.8 fl (7.4-10.4); MONOCYTES % 13.3 % (2.0-8.0); NEUTROPHILS % 62.3 % (40.0-76.0); RED BLOOD CELL COUNT 3.74 mill/uL (4.7-6.1); RED CELL DISTRIBUTION WIDTH 18.2 % (11.6-14.6)
[2022-04-11] MEDS: INSULIN LISPRO 100 UNITS/ML SUBCUT SCH ×4 (07:50→22:34)
[2022-04-11 07:53] LABS: CHLORIDE 102 mEq/L (98-107)
[2022-04-11 08:00] VITALS: BP 106/77
[2022-04-11 08:17] LABS: PLATELET 39 x1000/uL (130-400)
[2022-04-11] MEDS: CARVEDILOL 3.125 MG TABLET PO SCH ×2 (08:56→22:04)
[2022-04-11] MEDS: SPIRONOLACTONE 50MG TABLET PO SCH ×3 (08:56→16:18)
[2022-04-11] MEDS: CEFTRIAXONE 1,000 MG in DEXTROSE 5% WATER 50 ML IV SCH (09:09)
[2022-04-11] MEDS: PANTOPRAZOLE SODIUM 40 MG/VIAL IV SCH (09:09)
[2022-04-11] MEDS: INSULIN GLARGINE 100 UNITS/ML SUBCUT SCH ×2 (09:29→22:33)
[2022-04-11 12:00] VITALS: BP 124/66
[2022-04-11 16:00] VITALS: BP 125/72
[2022-04-11 20:00] VITALS: BP 117/74
[2022-04-11] MEDS ORDERED: ZOLPIDEM TARTRATE 5MG TABLET PO PRN (21:15)
[2022-04-12] VITALS: BP 113/62
[2022-04-12 04:00] VITALS: BP 107/70
[2022-04-12] MEDS: HYDROCODONE/ACETAMINOPHEN 10/325MG TABLET PO PRN ×4 (04:54→23:50)
[2022-04-12] MEDS: BLOOD SUGAR DIAGNOSTIC STRIP TEST SCH ×4 (07:20→20:39)
[2022-04-12] MEDS: INSULIN LISPRO 100 UNITS/ML SUBCUT SCH ×4 (07:50→21:06)
[2022-04-12 08:00] VITALS: BP 118/70
[2022-04-12] MEDS: CEFTRIAXONE 1,000 MG in DEXTROSE 5% WATER 50 ML IV SCH (09:08)
[2022-04-12] MEDS: PANTOPRAZOLE SODIUM 40 MG/VIAL IV SCH (09:08)
[2022-04-12] MEDS: CARVEDILOL 3.125 MG TABLET PO SCH ×2 (09:09→21:01)
[2022-04-12] MEDS: SPIRONOLACTONE 50MG TABLET PO SCH ×3 (09:10→17:14)
[2022-04-12] MEDS: INSULIN GLARGINE 100 UNITS/ML SUBCUT SCH ×2 (09:14→21:06)
[2022-04-12 12:00] VITALS: BP 110/68
[2022-04-12 16:00] VITALS: BP 115/75
[2022-04-12 20:00] VITALS: BP 111/73
[2022-04-12] MEDS: ZOLPIDEM TARTRATE 5MG TABLET PO PRN (21:01)
[2022-04-13] VITALS: BP 113/56
[2022-04-13 04:00] VITALS: BP 116/63
[2022-04-13] MEDS: HYDROCODONE/ACETAMINOPHEN 10/325MG TABLET PO PRN ×3 (06:14→19:39)
[2022-04-13] MEDS: BLOOD SUGAR DIAGNOSTIC STRIP TEST SCH ×4 (07:20→21:24)
[2022-04-13] MEDS: INSULIN LISPRO 100 UNITS/ML SUBCUT SCH ×4 (07:50→21:22)
[2022-04-13 08:00] VITALS: BP 124/74
[2022-04-13] MEDS: SPIRONOLACTONE 50MG TABLET PO SCH ×3 (08:26→17:00)
[2022-04-13] MEDS: CEFTRIAXONE 1,000 MG in DEXTROSE 5% WATER 50 ML IV SCH (08:26)
[2022-04-13] MEDS: CARVEDILOL 3.125 MG TABLET PO SCH ×2 (08:27→21:24)
[2022-04-13] MEDS: PANTOPRAZOLE SODIUM 40 MG/VIAL IV SCH (08:30)
[2022-04-13] MEDS: INSULIN GLARGINE 100 UNITS/ML SUBCUT SCH ×2 (10:27→21:23)
[2022-04-13 12:00] VITALS: BP 125/82
[2022-04-13 16:00] VITALS: BP 107/69
[2022-04-13 20:00] VITALS: BP 125/68
[2022-04-13] MEDS: ZOLPIDEM TARTRATE 5MG TABLET PO PRN (21:25)
[2022-04-14] VITALS: BP 122/70
[2022-04-14] MEDS: HYDROCODONE/ACETAMINOPHEN 10/325MG TABLET PO PRN ×4 (01:28→23:02)
[2022-04-14 04:00] VITALS: BP 124/77
[2022-04-14 06:07] LABS: BASOPHILS % 1.1 % (0.0-2.0); EOSINOPHILS % 6.4 % (0.0-5.0); HEMATOCRIT. 34.5 % (42.0-52.0); LYMPHOCYTES % 21.1 % (20.0-50.0); MEAN CORPUSCULAR HEMOGLOBIN 32.3 pg (28.0-32.0); MEAN CORPUSCULAR VOLUME 92.8 fL (80.0-94.0); MEAN PLATELET VOLUME 9.5 fl (7.4-10.4); MONOCYTES % 12.7 % (2.0-8.0); NEUTROPHILS % 58.7 % (40.0-76.0); RED BLOOD CELL COUNT 3.72 mill/uL (4.7-6.1); RED CELL DISTRIBUTION WIDTH 18.1 % (11.6-14.6)
[2022-04-14 06:41] LABS: CHLORIDE 98 mEq/L (98-107)
[2022-04-14] MEDS: BLOOD SUGAR DIAGNOSTIC STRIP TEST SCH ×4 (07:20→21:30)
[2022-04-14 08:00] VITALS: BP 122/79
[2022-04-14] MEDS: CARVEDILOL 3.125 MG TABLET PO SCH ×2 (08:50→21:46)
[2022-04-14] MEDS: SPIRONOLACTONE 50MG TABLET PO SCH ×3 (08:50→18:15)
[2022-04-14] MEDS: PANTOPRAZOLE SODIUM 40 MG/VIAL IV SCH (08:50)
[2022-04-14] MEDS: INSULIN GLARGINE 100 UNITS/ML SUBCUT SCH ×2 (09:11→21:44)
[2022-04-14] MEDS: INSULIN LISPRO 100 UNITS/ML SUBCUT SCH ×4 (09:11→21:43)
[2022-04-14] MEDS: CEFTRIAXONE 1,000 MG in DEXTROSE 5% WATER 50 ML IV SCH (09:51)
[2022-04-14 10:18] LABS: PLATELET ESTIMATE MARKEDLY DECREASED
[2022-04-14 10:20] LABS: PLATELET 40 x1000/uL (130-400)
[2022-04-14 12:00] VITALS: BP 104/70
[2022-04-14 16:00] VITALS: BP 110/76
[2022-04-14 20:00] VITALS: BP 129/80
[2022-04-14] MEDS: ZOLPIDEM TARTRATE 5MG TABLET PO PRN (23:00)
[2022-04-15] VITALS: BP 107/64
[2022-04-15 04:00] VITALS: BP 124/74
[2022-04-15] MEDS: HYDROCODONE/ACETAMINOPHEN 10/325MG TABLET PO PRN ×3 (05:43→18:26)
[2022-04-15 06:35] LABS: EOSINOPHILS % 7.1 % (0.0-5.0); HEMATOCRIT. 35.4 % (42.0-52.0); HEMOGLOBIN. 12.5 g/dL (14.0-18.0); LYMPHOCYTES % 23.2 % (20.0-50.0); MEAN CORPUSCULAR HEMOGLOBIN 32.4 pg (28.0-32.0); MEAN CORPUSCULAR VOLUME 92.1 fL (80.0-94.0); MEAN PLATELET VOLUME 9.4 fl (7.4-10.4); MONOCYTES % 13.2 % (2.0-8.0); NEUTROPHILS % 55.5 % (40.0-76.0); RED BLOOD CELL COUNT 3.85 mill/uL (4.7-6.1)
[2022-04-15 07:25] LABS: CHLORIDE 100 mEq/L (98-107)
[2022-04-15] MEDS: INSULIN LISPRO 100 UNITS/ML SUBCUT SCH ×4 (07:50→22:22)
[2022-04-15 08:00] VITALS: BP 143/81
[2022-04-15] MEDS: BLOOD SUGAR DIAGNOSTIC STRIP TEST SCH ×4 (08:11→21:00)
[2022-04-15 08:14] LABS: PLATELET 42 x1000/uL (130-400)
[2022-04-15] MEDS: PANTOPRAZOLE SODIUM 40 MG/VIAL IV SCH (09:26)
[2022-04-15] MEDS: SPIRONOLACTONE 50MG TABLET PO SCH ×3 (09:26→18:25)
[2022-04-15] MEDS: CARVEDILOL 3.125 MG TABLET PO SCH ×2 (09:26→22:13)
[2022-04-15] MEDS: CEFTRIAXONE 1,000 MG in DEXTROSE 5% WATER 50 ML IV SCH (09:28)
[2022-04-15] MEDS: INSULIN GLARGINE 100 UNITS/ML SUBCUT SCH ×2 (09:44→22:23)
[2022-04-15 12:00] VITALS: BP 110/80
[2022-04-15 16:00] VITALS: BP 103/74
[2022-04-15 20:09] VITALS: BP 114/71
[2022-04-15] MEDS: ZOLPIDEM TARTRATE 5MG TABLET PO PRN (22:12)
[2022-04-16 00:38] VITALS: BP 131/86
[2022-04-16] MEDS: HYDROCODONE/ACETAMINOPHEN 10/325MG TABLET PO PRN ×5 (01:16→23:55)
[2022-04-16 04:50] VITALS: BP 100/58
[2022-04-16] MEDS: BLOOD SUGAR DIAGNOSTIC STRIP TEST SCH ×4 (06:55→21:14)
[2022-04-16] MEDS: INSULIN LISPRO 100 UNITS/ML SUBCUT SCH ×4 (07:50→21:07)
[2022-04-16 07:57] LABS: BASOPHILS % 1.2 % (0.0-2.0); HEMATOCRIT. 37.5 % (42.0-52.0); HEMOGLOBIN. 13.2 g/dL (14.0-18.0); LYMPHOCYTES % 19.7 % (20.0-50.0); MEAN CORPUSCULAR HEMOGLOBIN 32.4 pg (28.0-32.0); MEAN CORPUSCULAR VOLUME 92.2 fL (80.0-94.0); MEAN PLATELET VOLUME 8.9 fl (7.4-10.4); MONOCYTES % 11.3 % (2.0-8.0); NEUTROPHILS % 60.8 % (40.0-76.0); RED BLOOD CELL COUNT 4.07 mill/uL (4.7-6.1); RED CELL DISTRIBUTION WIDTH 18.3 % (11.6-14.6)
[2022-04-16 08:00] VITALS: BP 118/77
[2022-04-16] MEDS: PANTOPRAZOLE SODIUM 40 MG/VIAL IV SCH (08:51)
[2022-04-16] MEDS: SPIRONOLACTONE 50MG TABLET PO SCH ×3 (08:52→18:28)
[2022-04-16] MEDS: CARVEDILOL 3.125 MG TABLET PO SCH ×2 (08:53→21:04)
[2022-04-16 08:56] LABS: CHLORIDE 98 mEq/L (98-107)
[2022-04-16] MEDS: CEFTRIAXONE 1,000 MG in DEXTROSE 5% WATER 50 ML IV SCH (09:16)
[2022-04-16] MEDS: INSULIN GLARGINE 100 UNITS/ML SUBCUT SCH ×2 (09:47→21:14)
[2022-04-16 10:48] LABS: PLATELET 49 x1000/uL (130-400); PLATELET ESTIMATE MARKEDLY DECREASED
[2022-04-16 12:00] VITALS: BP 124/73
[2022-04-16 16:00] VITALS: BP 114/76
[2022-04-16] MEDS ORDERED: NALOXONE HCL 0.4MG/ML VIAL IV PRN (19:00)
[2022-04-16 20:41] VITALS: BP 110/80
[2022-04-16] MEDS: ZOLPIDEM TARTRATE 5MG TABLET PO PRN (21:04)
[2022-04-17] MEDS: BLOOD SUGAR DIAGNOSTIC STRIP TEST SCH ×3 (06:20→18:18)
[2022-04-17 08:00] VITALS: BP 119/80
[2022-04-17] MEDS: PANTOPRAZOLE SODIUM 40 MG/VIAL IV SCH (08:30)
[2022-04-17] MEDS: CARVEDILOL 3.125 MG TABLET PO SCH (08:31)
[2022-04-17] MEDS: SPIRONOLACTONE 50MG TABLET PO SCH ×3 (08:31→18:19)
[2022-04-17] MEDS: INSULIN GLARGINE 100 UNITS/ML SUBCUT SCH (08:42)
[2022-04-17] MEDS: INSULIN LISPRO 100 UNITS/ML SUBCUT SCH ×3 (08:43→18:22)
[2022-04-17] MEDS: CEFTRIAXONE 1,000 MG in DEXTROSE 5% WATER 50 ML IV SCH (09:00)
[2022-04-17] MEDS ORDERED: GLIP10TA10 PO (09:56)
[2022-04-17] MEDS ORDERED: PANT40TA51 MT (09:56)
[2022-04-17] MEDS ORDERED: METF-416 MT (09:56)
[2022-04-17] MEDS ORDERED: COR3 PO (09:56)
[2022-04-17] MEDS ORDERED: SPIR100T5 PO (09:56)
[2022-04-17 12:00] VITALS: BP 126/80
[2022-04-17] MEDS ORDERED: LIDOCAINE HCL/PF 1% 10 MG/ML 5ML VIAL ONE (12:02)
[2022-04-17] MEDS: ACETAMINOPHEN 325MG TABLET PO PRN (13:20)
[2022-04-17 16:00] VITALS: BP 111/78
[2022-04-17 17:20] VITALS: BP 119/80
== END 2022-04-17 19:10 | disposition left against medical advice (07) | DRG 710 ==
LOC: ER 10:08 → 7WST 12:46 → ENRESERV 21:58 → MICUNO 03-29 13:00 → 6WST 03-30 23:13 → 6EST 04-07 18:01
PROVIDERS: ADMIT Internal Medicine; ATTEND Internal Medicine
PROC: 30233R1 Transfusion of Nonautologous Platelets into Peripheral Vein, Percutaneous Approach (ICD-10-PCS; principal; 2022-03-29)
PROC: 01NB0ZZ Release Lumbar Nerve, Open Approach (ICD-10-PCS; 2022-03-29)
PROC: 009U0ZZ Drainage of Spinal Canal, Open Approach (ICD-10-PCS; 2022-03-29)
PROC: 0W9G3ZZ Drainage of Peritoneal Cavity, Percutaneous Approach (ICD-10-PCS; 2022-04-03)
PROC: 02HV33Z Insertion of Infusion Device into Superior Vena Cava, Percutaneous Approach (ICD-10-PCS; 2022-04-17)
PROC: B548ZZA Ultrasonography of Superior Vena Cava, Guidance (ICD-10-PCS; 2022-04-17)
DX: A41.9 Sepsis, unspecified organism (principal); G06.2 Extradural and subdural abscess, unspecified; E43 Unspecified severe protein-calorie malnutrition; D69.6 Thrombocytopenia, unspecified; D68.9 Coagulation defect, unspecified; C22.0 Liver cell carcinoma; I85.10 Secondary esophageal varices without bleeding; E87.1 Hypo-osmolality and hyponatremia; E88.09 Other disorders of plasma-protein metabolism, not elsewhere classified; K76.6 Portal hypertension; K74.60 Unspecified cirrhosis of liver; D64.9 Anemia, unspecified; E11.65 Type 2 diabetes mellitus with hyperglycemia; B19.20 Unspecified viral hepatitis C without hepatic coma; K80.20 Calculus of gallbladder without cholecystitis without obstruction; R18.8 Other ascites; E80.6 Other disorders of bilirubin metabolism; E88.2 Lipomatosis, not elsewhere classified; F10.10 Alcohol abuse, uncomplicated; G89.29 Other chronic pain; M48.00 Spinal stenosis, site unspecified; N43.2 Other hydrocele; D72.819 Decreased white blood cell count, unspecified; R16.1 Splenomegaly, not elsewhere classified; Z20.822 Contact with and (suspected) exposure to COVID-19; Z68.31 Body mass index [BMI] 31.0-31.9, adult; Z85.05 Personal history of malignant neoplasm of liver; Z87.891 Personal history of nicotine dependence; M46.46 Discitis, unspecified, lumbar region
CPT/HCPCS: 36415; 36430; 36573; 49083; 71045; 72100; 72148; 72158; 73590; 74018; 74176; 76000; 76700; 76705; 76870; 80048; 80053; 80076; 81003; 82010; 82040; 82105; 82140; 82248; 82270; 82378; 82607; 82728; 82746; 82962; 83036; 83540; 83550; 83615; 83880; 84145; 84484; 85014; 85018; 85025; 85044; 85049; 85384; 85651; 86301; 86705; 86709; 86803; 86850; 86900; 87070; 87075; 87340; 87426; 88304; 88311; 93005; 93976; 97110; 97116; 97162; 97166; 97530; 97535; 99285; A9577; C1725; C1893; C9113; J0696; J1100; J1170; J1580; J1815; J2250; J2270; J2405; J2704; J2710; J3010; J3490; J7030; J7060; L3908; P9034; P9047; P9035

== ENCOUNTER 2022-04-25 20:32 | Emergency (ER) | payer MEDICAID, OTHER ==
[~2022-04-25] VITALS: Ht 170.2 cm; Wt 87.4 kg
[~2022-04-25 20:32] MED LIST: ATOR10TA MT; COR3 PO; EMPA25TA PO; GLIP10TA10 PO; LACT10SO7 MT; METF-416 MT; MIRT-111 PO; PANT40TA51 MT; SPIR100T5 PO
[2022-04-25 21:20] VITALS: BP 111/80
[2022-04-26] MEDS ORDERED: ZOLP5TAB2 MT (19:58)
== END 2022-04-25 23:39 | disposition left against medical advice (07) ==
LOC: ER 20:32
DX: Z53.21 Procedure and treatment not carried out due to patient leaving prior to being seen by health care provider (principal)

== ENCOUNTER 2022-04-26 05:34 | Inpatient (IN) | payer MEDICAID, OTHER ==
[~2022-04-26] VITALS: Ht 170.2 cm; Wt 99.8 kg
[2022-04-26] MEDS ORDERED: KETOROLAC 15MG/ML VIAL IV ONE (07:00)
[2022-04-26] MEDS ORDERED: SODIUM CHLORIDE 0.9% 1,000 ML IV ONE (07:00)
[2022-04-26 09:07] LABS: BASOPHILS % 0.7 % (0.0-2.0); EOSINOPHILS % 4.3 % (0.0-5.0); HEMATOCRIT. 36.3 % (42.0-52.0); HEMOGLOBIN. 12.3 g/dL (14.0-18.0); LYMPHOCYTES % 14.4 % (20.0-50.0); MEAN CORPUSCULAR HEMOGLOBIN 32.9 pg (28.0-32.0); MEAN CORPUSCULAR VOLUME 96.9 fL (80.0-94.0); MEAN PLATELET VOLUME 9.7 fl (7.4-10.4); MONOCYTES % 9.1 % (2.0-8.0); NEUTROPHILS % 71.5 % (40.0-76.0); RED BLOOD CELL COUNT 3.75 mill/uL (4.7-6.1); RED CELL DISTRIBUTION WIDTH 19.1 % (11.6-14.6)
[2022-04-26 09:13] LABS: CHLORIDE 106 mEq/L (98-107)
[2022-04-26 09:28] LABS: *AMPHETAMINES SCREEN URINE NEGATIVE (NEGATIVE); *BARBITURATES SCREEN URINE NEGATIVE (NEGATIVE); *BENZODIAZEPINES SCREEN URINE NEGATIVE (NEGATIVE); *COCAINE SCREEN URINE NEGATIVE (NEGATIVE); CANNABINOID URINE SCREEN NEGATIVE (NEGATIVE); METHADONE URINE SCREEN NEGATIVE (NEGATIVE); OPIATES URINE SCREEN NEGATIVE (NEGATIVE); PHENCYCLIDINE URINE SCREEN NEGATIVE (NEGATIVE)
[2022-04-26] MEDS ORDERED: ONDANSETRON HCL 4MG/2ML INJ IV NR (10:30)
[2022-04-26] MEDS ORDERED: MORPHINE SULFATE 2 MG/ML CPJ (NOT FOR IM USE) IV NR (10:30)
[2022-04-26] MEDS ORDERED: PIPERACILLIN/TAZ 3.375G PREMIX 50 ML IV ONE (12:15)
[2022-04-26] MEDS ORDERED: VANCOMYCIN 1G PREMIX 200 ML IV ONE (12:15)
[2022-04-26] MEDS ORDERED: PIPERACILLIN/TAZ 3.375G PREMIX 50 ML IV SCH (12:30)
[2022-04-26] MEDS ORDERED: VANCOMYCIN 1GM PMX (XELLIA) 200 ML IV SCH (12:30)
[2022-04-26] MEDS ORDERED: LORAZEPAM 1MG TABLET PO ONE (14:00)
[2022-04-26] MEDS ORDERED: ONDANSETRON HCL 4MG/2ML INJ IV STA (15:42)
[2022-04-26] MEDS ORDERED: MORPHINE SULFATE 4 MG/ML CPJ (NOT FOR IM USE) IV STA (15:42)
[2022-04-26] MEDS ORDERED: LORAZEPAM 0.5MG TABLET PO PRN (18:15)
[2022-04-26] MEDS ORDERED: DOCUSATE SODIUM 100MG CAPSULE PO PRN (18:15)
[2022-04-26] MEDS ORDERED: CLONIDINE 0.1MG TABLET PO PRN (18:15)
[2022-04-26] MEDS ORDERED: ACETAMINOPHEN 325MG TABLET PO PRN ×2 (18:15)
[2022-04-26] MEDS ORDERED: ONDANSETRON HCL 4MG/2ML INJ IV PRN (18:15)
[2022-04-26] MEDS ORDERED: IPRATROPIUM/ALBUTEROL 0.5-3(2.5)MG/3ML NEB HHN PRN (18:15)
[2022-04-26 19:21] LABS: INR 1.3; PROTHROMBIN TIME 13.5 sec (9.6-11.0)
[2022-04-26] MEDS ORDERED: ZOLP5TAB2 MT (19:58)
[2022-04-26 20:00] VITALS: BP 119/71
[2022-04-26] MEDS ORDERED: VANCOMYCIN 1GM PMX (XELLIA) 200 ML IV NR (20:00)
[2022-04-26] MEDS ORDERED: DEXTROSE 50% WATER 50ML SYRINGE IV PRN (21:00)
[2022-04-26] MEDS: BLOOD SUGAR DIAGNOSTIC STRIP TEST SCH (21:00)
[2022-04-26] MEDS: ATORVASTATIN CALCIUM 10MG TABLET PO SCH (21:26)
[2022-04-26] MEDS: HYDROCODONE/ACETAMINOPHEN 5/325MG TABLET PO PRN (21:35)
[2022-04-26] MEDS: INSULIN LISPRO 100 UNITS/ML SUBCUT SCH (21:36)
[2022-04-26] MEDS ORDERED: NALOXONE HCL 0.4MG/ML VIAL IV PRN (21:45)
[2022-04-26] MEDS ORDERED: PIPERACILLIN/TAZOBACTAM 3.375 G in DEXTROSE 5% WATER 50 ML IV SCH (22:00)
[2022-04-26] MEDS: ZOLPIDEM TARTRATE 5MG TABLET PO PRN (23:04)
[2022-04-26 23:14] VITALS: BP 130/77
[2022-04-27] VITALS (10 sets, daily range): BP systolic 100–111; BP diastolic 54–69
[2022-04-27] MEDS: PIPERACILLIN/TAZOBACTAM 3.375 G in DEXTROSE 5% WATER 50 ML IV SCH ×4 (00:48→21:19)
[2022-04-27] MEDS: HYDROCODONE/ACETAMINOPHEN 5/325MG TABLET PO PRN ×6 (01:52→23:46)
[2022-04-27] MEDS: VANCOMYCIN 1GM PMX (XELLIA) 200 ML IV SCH ×2 (05:12→18:21)
[2022-04-27] MEDS ORDERED: VANCOMYCIN 1GM PMX (XELLIA) 200 ML IV SCH (06:00)
[2022-04-27 06:44] LABS: BASOPHILS % 0.8 % (0.0-2.0); EOSINOPHILS % 6.5 % (0.0-5.0); HEMATOCRIT. 30.7 % (42.0-52.0); HEMOGLOBIN. 10.8 g/dL (14.0-18.0); LYMPHOCYTES % 17.8 % (20.0-50.0); MEAN CORPUSCULAR HEMOGLOBIN 33.9 pg (28.0-32.0); MEAN CORPUSCULAR VOLUME 96.5 fL (80.0-94.0); MONOCYTES % 10.6 % (2.0-8.0); NEUTROPHILS % 64.3 % (40.0-76.0); RED BLOOD CELL COUNT 3.18 mill/uL (4.7-6.1); RED CELL DISTRIBUTION WIDTH 19.1 % (11.6-14.6)
[2022-04-27 06:58] LABS: PLATELET 20 x1000/uL (130-400)
[2022-04-27 07:38] LABS: CHLORIDE 109 mEq/L (98-107)
[2022-04-27] MEDS: INSULIN LISPRO 100 UNITS/ML SUBCUT SCH ×4 (07:50→21:47)
[2022-04-27] MEDS: BLOOD SUGAR DIAGNOSTIC STRIP TEST SCH ×4 (08:02→21:05)
[2022-04-27] MEDS: PANTOPRAZOLE 40MG DR TABLET PO SCH (09:53)
[2022-04-27] MEDS: GLIPIZIDE 10MG TABLET PO SCH ×2 (09:57→18:21)
[2022-04-27 10:33] LABS: EOSINOPHILS % 6.7 % (0.0-5.0); HEMATOCRIT. 33.8 % (42.0-52.0); HEMOGLOBIN. 11.4 g/dL (14.0-18.0); LYMPHOCYTES % 14.1 % (20.0-50.0); MEAN CORPUSCULAR HEMOGLOBIN 33.4 pg (28.0-32.0); MEAN CORPUSCULAR VOLUME 98.9 fL (80.0-94.0); MEAN PLATELET VOLUME 10.1 fl (7.4-10.4); MONOCYTES % 10.1 % (2.0-8.0); NEUTROPHILS % 68.1 % (40.0-76.0); RED BLOOD CELL COUNT 3.42 mill/uL (4.7-6.1)
[2022-04-27 10:43] LABS: PLATELET 24 x1000/uL (130-400)
[2022-04-27 10:48] LABS: CHLORIDE 104 mEq/L (98-107)
[2022-04-27] MEDS: CARVEDILOL 3.125 MG TABLET PO SCH ×2 (13:15→21:00)
[2022-04-27] MEDS: SPIRONOLACTONE 25MG TABLET PO SCH (13:15)
[2022-04-27 14:13] LABS: PLATELET 31 x1000/uL (130-400)
[2022-04-27] MEDS: LACTULOSE 20G/30ML UDC PO SCH (17:00)
[2022-04-27] MEDS: ATORVASTATIN CALCIUM 10MG TABLET PO SCH (21:04)
[2022-04-27] MEDS: MIRTAZAPINE 15MG TABLET PO SCH (21:04)
[2022-04-27] MEDS ORDERED: CEFTRIAXONE 2 G PREMIX 50 ML IV SCH (21:30)
[2022-04-28] VITALS: BP 116/62
[2022-04-28] MEDS: CEFTRIAXONE 2 G in DEXTROSE 5% WATER 50 ML IV SCH ×2 (01:26→21:31)
[2022-04-28 04:00] VITALS: BP 118/64
[2022-04-28] MEDS: VANCOMYCIN 1GM PMX (XELLIA) 200 ML IV SCH ×2 (06:31→18:07)
[2022-04-28] MEDS: HYDROCODONE/ACETAMINOPHEN 5/325MG TABLET PO PRN ×2 (06:32→11:35)
[2022-04-28 06:41] LABS: CHLORIDE 111 mEq/L (98-107)
[2022-04-28] MEDS: BLOOD SUGAR DIAGNOSTIC STRIP TEST SCH ×4 (07:48→21:10)
[2022-04-28] MEDS: INSULIN LISPRO 100 UNITS/ML SUBCUT SCH ×4 (07:50→21:06)
[2022-04-28 08:00] VITALS: BP 106/63
[2022-04-28] MEDS: LACTULOSE 20G/30ML UDC PO SCH ×2 (09:00→17:00)
[2022-04-28] MEDS: GLIPIZIDE 10MG TABLET PO SCH ×2 (09:54→18:19)
[2022-04-28] MEDS: SPIRONOLACTONE 25MG TABLET PO SCH (09:54)
[2022-04-28] MEDS: PANTOPRAZOLE 40MG DR TABLET PO SCH (09:54)
[2022-04-28] MEDS: CARVEDILOL 3.125 MG TABLET PO SCH ×2 (09:54→21:09)
[2022-04-28 12:00] VITALS: BP 113/70
[2022-04-28] MEDS: HYDROCODONE/ACETAMINOPHEN 10/325MG TABLET PO PRN ×2 (15:32→23:17)
[2022-04-28 16:00] VITALS: BP 134/89
[2022-04-28 20:00] VITALS: BP 118/74
[2022-04-28] MEDS: ATORVASTATIN CALCIUM 10MG TABLET PO SCH (21:10)
[2022-04-28] MEDS: MIRTAZAPINE 15MG TABLET PO SCH (21:24)
[2022-04-29] VITALS (8 sets, daily range): BP systolic 98–135; BP diastolic 58–79
[2022-04-29] MEDS: HYDROCODONE/ACETAMINOPHEN 10/325MG TABLET PO PRN ×3 (05:24→17:38)
[2022-04-29] MEDS: VANCOMYCIN 1GM PMX (XELLIA) 200 ML IV SCH ×2 (05:27→17:39)
[2022-04-29] MEDS: BLOOD SUGAR DIAGNOSTIC STRIP TEST SCH ×4 (06:23→21:00)
[2022-04-29] MEDS: INSULIN LISPRO 100 UNITS/ML SUBCUT SCH ×4 (07:50→20:34)
[2022-04-29] MEDS: LACTULOSE 20G/30ML UDC PO SCH ×2 (09:00→17:00)
[2022-04-29] MEDS: CARVEDILOL 3.125 MG TABLET PO SCH ×2 (13:02→20:26)
[2022-04-29] MEDS: PANTOPRAZOLE 40MG DR TABLET PO SCH (13:02)
[2022-04-29] MEDS: GLIPIZIDE 10MG TABLET PO SCH ×2 (13:03→17:39)
[2022-04-29] MEDS: SPIRONOLACTONE 25MG TABLET PO SCH (13:12)
[2022-04-29] MEDS: MORPHINE SULFATE 2 MG/ML CPJ (NOT FOR IM USE) IV PRN ×2 (14:19→20:05)
[2022-04-29] MEDS: ATORVASTATIN CALCIUM 10MG TABLET PO SCH (20:27)
[2022-04-29] MEDS: SPIRONOLACTONE 50MG TABLET PO SCH (20:28)
[2022-04-29] MEDS: MIRTAZAPINE 15MG TABLET PO SCH (20:45)
[2022-04-30] VITALS (9 sets, daily range): BP systolic 96–142; BP diastolic 58–78
[2022-04-30] MEDS: HYDROCODONE/ACETAMINOPHEN 10/325MG TABLET PO PRN ×3 (02:14→19:40)
[2022-04-30] MEDS: CEFTRIAXONE 2 G in DEXTROSE 5% WATER 50 ML IV SCH ×2 (03:46→21:29)
[2022-04-30] MEDS: VANCOMYCIN 1GM PMX (XELLIA) 200 ML IV SCH ×2 (05:13→18:34)
[2022-04-30] MEDS: BLOOD SUGAR DIAGNOSTIC STRIP TEST SCH ×4 (07:20→21:56)
[2022-04-30 07:42] LABS: INR 1.3; PROTHROMBIN TIME 13.6 sec (9.6-11.0)
[2022-04-30] MEDS: INSULIN LISPRO 100 UNITS/ML SUBCUT SCH ×4 (07:50→21:28)
[2022-04-30] MEDS ORDERED: ALBUMIN HUMAN 25GM/100ML (25%) IV SCH (08:00)
[2022-04-30 08:24] LABS: CHLORIDE 109 mEq/L (98-107)
[2022-04-30 08:51] LABS: BASOPHILS % 0.7 % (0.0-2.0); HEMATOCRIT. 35.4 % (42.0-52.0); HEMOGLOBIN. 11.9 g/dL (14.0-18.0); LYMPHOCYTES % 27.1 % (20.0-50.0); MEAN CORPUSCULAR HEMOGLOBIN 33.2 pg (28.0-32.0); MEAN CORPUSCULAR VOLUME 98.6 fL (80.0-94.0); MEAN PLATELET VOLUME 9.9 fl (7.4-10.4); MONOCYTES % 10.4 % (2.0-8.0); NEUTROPHILS % 57.8 % (40.0-76.0); RED BLOOD CELL COUNT 3.59 mill/uL (4.7-6.1); RED CELL DISTRIBUTION WIDTH 18.3 % (11.6-14.6)
[2022-04-30] MEDS: GLIPIZIDE 10MG TABLET PO SCH ×2 (08:53→18:33)
[2022-04-30] MEDS: PANTOPRAZOLE 40MG DR TABLET PO SCH (08:53)
[2022-04-30] MEDS: LACTULOSE 20G/30ML UDC PO SCH ×2 (08:53→17:00)
[2022-04-30] MEDS: CARVEDILOL 3.125 MG TABLET PO SCH ×3 (08:59→21:00)
[2022-04-30] MEDS: SPIRONOLACTONE 50MG TABLET PO SCH ×2 (08:59→18:34)
[2022-04-30] MEDS: MORPHINE SULFATE 2 MG/ML CPJ (NOT FOR IM USE) IV PRN ×3 (09:10→21:44)
[2022-04-30 09:16] LABS: PLATELET 25 x1000/uL (130-400)
[2022-04-30] MEDS: MIRTAZAPINE 15MG TABLET PO SCH (21:27)
[2022-04-30] MEDS: ATORVASTATIN CALCIUM 10MG TABLET PO SCH (21:27)
[2022-05-01] VITALS (14 sets, daily range): BP systolic 96–122; BP diastolic 56–77
[2022-05-01] MEDS: HYDROCODONE/ACETAMINOPHEN 10/325MG TABLET PO PRN ×3 (02:07→17:32)
[2022-05-01] MEDS: VANCOMYCIN 1GM PMX (XELLIA) 200 ML IV SCH ×2 (05:01→18:07)
[2022-05-01] MEDS: MORPHINE SULFATE 2 MG/ML CPJ (NOT FOR IM USE) IV PRN ×3 (05:56→21:12)
[2022-05-01] MEDS: BLOOD SUGAR DIAGNOSTIC STRIP TEST SCH ×4 (06:28→21:00)
[2022-05-01] MEDS: LACTULOSE 20G/30ML UDC PO SCH ×2 (09:00→17:00)
[2022-05-01 09:16] LABS: BASOPHILS % 0.8 % (0.0-2.0); EOSINOPHILS % 4.7 % (0.0-5.0); HEMATOCRIT. 34.3 % (42.0-52.0); HEMOGLOBIN. 11.8 g/dL (14.0-18.0); LYMPHOCYTES % 23.6 % (20.0-50.0); MEAN CORPUSCULAR HEMOGLOBIN 33.5 pg (28.0-32.0); MEAN CORPUSCULAR VOLUME 97.4 fL (80.0-94.0); MEAN PLATELET VOLUME 8.9 fl (7.4-10.4); MONOCYTES % 10.6 % (2.0-8.0); NEUTROPHILS % 60.3 % (40.0-76.0); RED BLOOD CELL COUNT 3.52 mill/uL (4.7-6.1); RED CELL DISTRIBUTION WIDTH 18.3 % (11.6-14.6)
[2022-05-01 09:23] LABS: CHLORIDE 109 mEq/L (98-107)
[2022-05-01 09:25] LABS: INR 1.3; PROTHROMBIN TIME 13.8 sec (9.6-11.0)
[2022-05-01 09:26] LABS: PLATELET 37 x1000/uL (130-400)
[2022-05-01] MEDS: GLIPIZIDE 10MG TABLET PO SCH ×2 (10:21→18:05)
[2022-05-01] MEDS: PANTOPRAZOLE 40MG DR TABLET PO SCH (10:21)
[2022-05-01] MEDS: CARVEDILOL 3.125 MG TABLET PO SCH ×2 (10:21→21:00)
[2022-05-01] MEDS: SPIRONOLACTONE 50MG TABLET PO SCH ×2 (10:21→18:06)
[2022-05-01] MEDS: INSULIN LISPRO 100 UNITS/ML SUBCUT SCH ×4 (10:39→22:26)
[2022-05-01] MEDS ORDERED: TRAMADOL 50MG TABLET PO PRN (11:00)
[2022-05-01 12:25] LABS: PLATELET ESTIMATE MARKEDLY DECREASED
[2022-05-01] MEDS: CEFTRIAXONE 2 G in DEXTROSE 5% WATER 50 ML IV SCH (22:03)
[2022-05-01] MEDS: MIRTAZAPINE 15MG TABLET PO SCH (22:04)
[2022-05-01] MEDS: ATORVASTATIN CALCIUM 10MG TABLET PO SCH (22:05)
[2022-05-01] MEDS: ZOLPIDEM TARTRATE 5MG TABLET PO PRN (22:27)
[2022-05-02] VITALS: BP 125/72
[2022-05-02 04:00] VITALS: BP 134/78
[2022-05-02] MEDS: HYDROCODONE/ACETAMINOPHEN 10/325MG TABLET PO PRN ×4 (04:45→23:49)
[2022-05-02] MEDS: BLOOD SUGAR DIAGNOSTIC STRIP TEST SCH ×4 (07:36→21:01)
[2022-05-02] MEDS: INSULIN LISPRO 100 UNITS/ML SUBCUT SCH ×4 (07:37→21:29)
[2022-05-02] MEDS: MORPHINE SULFATE 2 MG/ML CPJ (NOT FOR IM USE) IV PRN ×3 (07:38→21:36)
[2022-05-02] MEDS: GLIPIZIDE 10MG TABLET PO SCH ×2 (09:00→17:47)
[2022-05-02] MEDS: LACTULOSE 20G/30ML UDC PO SCH ×2 (09:00→17:00)
[2022-05-02] MEDS: PANTOPRAZOLE 40MG DR TABLET PO SCH (09:13)
[2022-05-02] MEDS: SPIRONOLACTONE 50MG TABLET PO SCH ×2 (09:13→17:47)
[2022-05-02] MEDS: CARVEDILOL 3.125 MG TABLET PO SCH ×2 (09:13→21:01)
[2022-05-02] MEDS: FUROSEMIDE 20MG/2ML VIAL IVP SCH (09:14)
[2022-05-02 09:16] LABS: CHLORIDE 108 mEq/L (98-107)
[2022-05-02 11:41] LABS: BASOPHILS % 0.9 % (0.0-2.0); EOSINOPHILS % 4.4 % (0.0-5.0); HEMATOCRIT. 36.1 % (42.0-52.0); HEMOGLOBIN. 12.2 g/dL (14.0-18.0); LYMPHOCYTES % 27.8 % (20.0-50.0); MEAN CORPUSCULAR HEMOGLOBIN 33.1 pg (28.0-32.0); MEAN CORPUSCULAR VOLUME 98.1 fL (80.0-94.0); MONOCYTES % 11.4 % (2.0-8.0); NEUTROPHILS % 55.5 % (40.0-76.0); RED BLOOD CELL COUNT 3.68 mill/uL (4.7-6.1); RED CELL DISTRIBUTION WIDTH 18.5 % (11.6-14.6)
[2022-05-02 11:50] LABS: PLATELET 35 x1000/uL (130-400)
[2022-05-02 16:00] VITALS: BP 105/73
[2022-05-02] MEDS: ATORVASTATIN CALCIUM 10MG TABLET PO SCH (21:00)
[2022-05-02] MEDS: MIRTAZAPINE 15MG TABLET PO SCH (21:00)
[2022-05-02] MEDS: CEFTRIAXONE 2 G in DEXTROSE 5% WATER 50 ML IV SCH (21:27)
[2022-05-03] MEDS: BLOOD SUGAR DIAGNOSTIC STRIP TEST SCH ×4 (06:14→21:00)
[2022-05-03] MEDS: HYDROCODONE/ACETAMINOPHEN 10/325MG TABLET PO PRN ×3 (06:29→21:56)
[2022-05-03 07:29] LABS: BASOPHILS % 0.7 % (0.0-2.0); EOSINOPHILS % 4.5 % (0.0-5.0); HEMOGLOBIN. 11.4 g/dL (14.0-18.0); LYMPHOCYTES % 32.2 % (20.0-50.0); MEAN CORPUSCULAR HEMOGLOBIN 33.7 pg (28.0-32.0); MEAN CORPUSCULAR VOLUME 97.8 fL (80.0-94.0); MEAN PLATELET VOLUME 10.3 fl (7.4-10.4); NEUTROPHILS % 48.6 % (40.0-76.0); RED BLOOD CELL COUNT 3.38 mill/uL (4.7-6.1); RED CELL DISTRIBUTION WIDTH 18.3 % (11.6-14.6)
[2022-05-03 07:43] LABS: CHLORIDE 109 mEq/L (98-107)
[2022-05-03 07:55] LABS: PLATELET 29 x1000/uL (130-400)
[2022-05-03 08:00] VITALS: BP 111/72
[2022-05-03] MEDS: FUROSEMIDE 20MG/2ML VIAL IVP SCH (09:28)
[2022-05-03] MEDS: CARVEDILOL 3.125 MG TABLET PO SCH ×2 (09:29→21:57)
[2022-05-03] MEDS: SPIRONOLACTONE 50MG TABLET PO SCH ×2 (09:30→17:49)
[2022-05-03] MEDS: LACTULOSE 20G/30ML UDC PO SCH ×2 (09:30→17:48)
[2022-05-03] MEDS: PANTOPRAZOLE 40MG DR TABLET PO SCH (09:30)
[2022-05-03] MEDS: GLIPIZIDE 10MG TABLET PO SCH ×2 (09:30→17:49)
[2022-05-03] MEDS: MORPHINE SULFATE 2 MG/ML CPJ (NOT FOR IM USE) IV PRN (09:34)
[2022-05-03] MEDS: INSULIN LISPRO 100 UNITS/ML SUBCUT SCH ×4 (09:50→21:00)
[2022-05-03 12:00] VITALS: BP 101/60
[2022-05-03] MEDS: GABAPENTIN 300MG CAPSULE PO SCH ×2 (13:28→22:02)
[2022-05-03 16:00] VITALS: BP 102/65
[2022-05-03 20:00] VITALS: BP 112/68
[2022-05-03] MEDS: MIRTAZAPINE 15MG TABLET PO SCH (21:56)
[2022-05-03] MEDS: ATORVASTATIN CALCIUM 10MG TABLET PO SCH (21:57)
[2022-05-03] MEDS: METHOCARBAMOL 500MG TABLET PO PRN (21:57)
[2022-05-03] MEDS: CEFTRIAXONE 2 G in DEXTROSE 5% WATER 50 ML IV SCH (22:06)
[2022-05-04] VITALS (8 sets, daily range): BP systolic 84–137; BP diastolic 46–84
[2022-05-04] MEDS: GABAPENTIN 300MG CAPSULE PO SCH ×3 (04:40→21:17)
[2022-05-04] MEDS: HYDROCODONE/ACETAMINOPHEN 10/325MG TABLET PO PRN ×4 (04:40→20:33)
[2022-05-04 06:08] LABS: BASOPHILS % 0.6 % (0.0-2.0); EOSINOPHILS % 4.7 % (0.0-5.0); HEMATOCRIT. 30.2 % (42.0-52.0); HEMOGLOBIN. 10.6 g/dL (14.0-18.0); LYMPHOCYTES % 24.8 % (20.0-50.0); MEAN CORPUSCULAR HEMOGLOBIN 33.8 pg (28.0-32.0); MEAN CORPUSCULAR VOLUME 96.3 fL (80.0-94.0); MONOCYTES % 13.4 % (2.0-8.0); NEUTROPHILS % 56.5 % (40.0-76.0); RED BLOOD CELL COUNT 3.13 mill/uL (4.7-6.1); RED CELL DISTRIBUTION WIDTH 17.9 % (11.6-14.6)
[2022-05-04 06:15] LABS: INR 1.4; PROTHROMBIN TIME 14.2 sec (9.6-11.0)
[2022-05-04 06:36] LABS: CHLORIDE 108 mEq/L (98-107)
[2022-05-04 06:48] LABS: PLATELET 32 x1000/uL (130-400)
[2022-05-04] MEDS: BLOOD SUGAR DIAGNOSTIC STRIP TEST SCH ×4 (07:04→21:16)
[2022-05-04] MEDS: INSULIN LISPRO 100 UNITS/ML SUBCUT SCH ×4 (07:04→21:00)
[2022-05-04] MEDS: FUROSEMIDE 20MG/2ML VIAL IVP SCH (09:00)
[2022-05-04] MEDS: LACTULOSE 20G/30ML UDC PO SCH ×2 (09:00→10:45)
[2022-05-04] MEDS: GLIPIZIDE 10MG TABLET PO SCH ×2 (10:33→18:29)
[2022-05-04] MEDS: SPIRONOLACTONE 50MG TABLET PO SCH ×2 (10:33→17:00)
[2022-05-04] MEDS: PANTOPRAZOLE 40MG DR TABLET PO SCH (10:34)
[2022-05-04] MEDS: CARVEDILOL 3.125 MG TABLET PO SCH ×2 (10:34→21:16)
[2022-05-04] MEDS: METHOCARBAMOL 500MG TABLET PO PRN (19:06)
[2022-05-04] MEDS: ATORVASTATIN CALCIUM 10MG TABLET PO SCH (21:16)
[2022-05-04] MEDS: MIRTAZAPINE 15MG TABLET PO SCH (21:16)
[2022-05-04] MEDS: CEFTRIAXONE 2 G in DEXTROSE 5% WATER 50 ML IV SCH (21:17)
[2022-05-05] VITALS: BP 135/85
[2022-05-05 04:00] VITALS: BP 136/86
[2022-05-05] MEDS: GABAPENTIN 300MG CAPSULE PO SCH ×3 (06:00→21:00)
[2022-05-05] MEDS: BLOOD SUGAR DIAGNOSTIC STRIP TEST SCH ×4 (06:20→20:42)
[2022-05-05 08:36] LABS: INR 1.3; PROTHROMBIN TIME 13.4 sec (9.6-11.0)
[2022-05-05 08:57] LABS: CHLORIDE 106 mEq/L (98-107)
[2022-05-05] MEDS: FUROSEMIDE 20MG/2ML VIAL IVP SCH (09:00)
[2022-05-05] MEDS: LACTULOSE 20G/30ML UDC PO SCH ×2 (09:00→17:00)
[2022-05-05] MEDS: CARVEDILOL 3.125 MG TABLET PO SCH ×2 (09:00→20:42)
[2022-05-05] MEDS: SPIRONOLACTONE 50MG TABLET PO SCH ×2 (10:20→18:38)
[2022-05-05] MEDS: PANTOPRAZOLE 40MG DR TABLET PO SCH (10:21)
[2022-05-05] MEDS: GLIPIZIDE 10MG TABLET PO SCH ×2 (10:21→18:37)
[2022-05-05] MEDS: HYDROCODONE/ACETAMINOPHEN 10/325MG TABLET PO PRN ×3 (10:22→20:28)
[2022-05-05] MEDS: FUROSEMIDE 40MG TABLET PO NR ×3 (10:45→18:37)
[2022-05-05 10:49] LABS: BASOPHILS % 0.5 % (0.0-2.0); EOSINOPHILS % 4.1 % (0.0-5.0); HEMATOCRIT. 36.5 % (42.0-52.0); HEMOGLOBIN. 12.2 g/dL (14.0-18.0); LYMPHOCYTES % 13.7 % (20.0-50.0); MEAN CORPUSCULAR HEMOGLOBIN 33.2 pg (28.0-32.0); MEAN CORPUSCULAR VOLUME 99.7 fL (80.0-94.0); MEAN PLATELET VOLUME 10.3 fl (7.4-10.4); MONOCYTES % 10.9 % (2.0-8.0); NEUTROPHILS % 70.8 % (40.0-76.0); RED BLOOD CELL COUNT 3.66 mill/uL (4.7-6.1)
[2022-05-05 10:54] LABS: PLATELET 36 x1000/uL (130-400)
[2022-05-05] MEDS ORDERED: FUROSEMIDE 40MG/4ML VIAL IVP NR (16:30)
[2022-05-05] MEDS: METHOCARBAMOL 500MG TABLET PO PRN (18:45)
[2022-05-05] MEDS: INSULIN LISPRO 100 UNITS/ML SUBCUT SCH ×4 (18:47→20:42)
[2022-05-05 20:00] VITALS: BP 133/67
[2022-05-05] MEDS: ATORVASTATIN CALCIUM 10MG TABLET PO SCH (20:42)
[2022-05-05] MEDS: MIRTAZAPINE 15MG TABLET PO SCH (21:00)
[2022-05-05] MEDS: CEFTRIAXONE 2 G in DEXTROSE 5% WATER 50 ML IV SCH (22:15)
[2022-05-06] MEDS: GABAPENTIN 300MG CAPSULE PO SCH ×3 (06:00→22:04)
[2022-05-06] MEDS: BLOOD SUGAR DIAGNOSTIC STRIP TEST SCH ×4 (06:36→21:00)
[2022-05-06] MEDS: HYDROCODONE/ACETAMINOPHEN 10/325MG TABLET PO PRN ×4 (06:36→22:02)
[2022-05-06] MEDS: INSULIN LISPRO 100 UNITS/ML SUBCUT SCH ×4 (06:36→21:00)
[2022-05-06 08:14] LABS: BASOPHILS % 0.7 % (0.0-2.0); EOSINOPHILS % 4.2 % (0.0-5.0); HEMATOCRIT. 34.5 % (42.0-52.0); LYMPHOCYTES % 25.8 % (20.0-50.0); MEAN CORPUSCULAR HEMOGLOBIN 33.7 pg (28.0-32.0); MEAN CORPUSCULAR VOLUME 96.7 fL (80.0-94.0); MEAN PLATELET VOLUME 9.8 fl (7.4-10.4); MONOCYTES % 10.4 % (2.0-8.0); NEUTROPHILS % 58.9 % (40.0-76.0); RED BLOOD CELL COUNT 3.56 mill/uL (4.7-6.1); RED CELL DISTRIBUTION WIDTH 18.2 % (11.6-14.6)
[2022-05-06 08:15] LABS: CHLORIDE 104 mEq/L (98-107)
[2022-05-06 08:36] LABS: PLATELET 38 x1000/uL (130-400)
[2022-05-06] MEDS: FUROSEMIDE 20MG/2ML VIAL IVP SCH (09:27)
[2022-05-06] MEDS: LACTULOSE 20G/30ML UDC PO SCH ×2 (09:27→17:45)
[2022-05-06] MEDS: PANTOPRAZOLE 40MG DR TABLET PO SCH (09:28)
[2022-05-06] MEDS: CARVEDILOL 3.125 MG TABLET PO SCH ×2 (09:28→22:03)
[2022-05-06] MEDS: GLIPIZIDE 10MG TABLET PO SCH ×2 (09:28→17:45)
[2022-05-06] MEDS: SPIRONOLACTONE 50MG TABLET PO SCH (09:28)
[2022-05-06] MEDS: METHOCARBAMOL 500MG TABLET PO PRN (15:01)
[2022-05-06 20:00] VITALS: BP 122/87
[2022-05-06] MEDS: ATORVASTATIN CALCIUM 10MG TABLET PO SCH (22:03)
[2022-05-06] MEDS: MIRTAZAPINE 15MG TABLET PO SCH (22:03)
[2022-05-06] MEDS: CEFTRIAXONE 2 G in DEXTROSE 5% WATER 50 ML IV SCH (22:04)
[2022-05-07] VITALS: BP 121/70
[2022-05-07] MEDS: BLOOD SUGAR DIAGNOSTIC STRIP TEST SCH ×3 (07:20→17:21)
[2022-05-07] MEDS: INSULIN LISPRO 100 UNITS/ML SUBCUT SCH ×3 (07:50→18:34)
[2022-05-07 08:00] VITALS: BP 107/69
[2022-05-07] MEDS: PANTOPRAZOLE 40MG DR TABLET PO SCH (09:00)
[2022-05-07] MEDS: FUROSEMIDE 20MG/2ML VIAL IVP SCH (09:00)
[2022-05-07] MEDS: CARVEDILOL 3.125 MG TABLET PO SCH (09:00)
[2022-05-07] MEDS: SPIRONOLACTONE 50MG TABLET PO SCH (09:00)
[2022-05-07] MEDS: GLIPIZIDE 10MG TABLET PO SCH ×2 (09:00→18:30)
[2022-05-07] MEDS: LACTULOSE 20G/30ML UDC PO SCH ×2 (09:00→18:30)
[2022-05-07 12:00] VITALS: BP 121/71
[2022-05-07 12:35] LABS: BASOPHILS % 0.8 % (0.0-2.0); EOSINOPHILS % 5.1 % (0.0-5.0); HEMATOCRIT. 34.2 % (42.0-52.0); HEMOGLOBIN. 12.1 g/dL (14.0-18.0); MEAN CORPUSCULAR HEMOGLOBIN 33.8 pg (28.0-32.0); MEAN CORPUSCULAR VOLUME 95.9 fL (80.0-94.0); MEAN PLATELET VOLUME 10.5 fl (7.4-10.4); MONOCYTES % 11.6 % (2.0-8.0); NEUTROPHILS % 56.5 % (40.0-76.0); RED BLOOD CELL COUNT 3.57 mill/uL (4.7-6.1); RED CELL DISTRIBUTION WIDTH 17.7 % (11.6-14.6)
[2022-05-07] MEDS: HYDROCODONE/ACETAMINOPHEN 10/325MG TABLET PO PRN ×2 (13:05→18:38)
[2022-05-07 13:19] LABS: CHLORIDE 102 mEq/L (98-107)
[2022-05-07] MEDS ORDERED: NALOXONE HCL 0.4MG/ML VIAL IV PRN (13:30)
[2022-05-07] MEDS: GABAPENTIN 300MG CAPSULE PO SCH (14:04)
[2022-05-07 14:36] LABS: PLATELET 39 x1000/uL (130-400)
[2022-05-07 16:00] VITALS: BP 111/71
[2022-05-07 16:54] VITALS: BP 111/71
[2022-05-07 18:38] VITALS: BP 111/71
== END 2022-05-07 19:06 | disposition home health service (06) | DRG 721 ==
LOC: ER 05:34 → 6EST 16:33 → EDBEDREQ 16:36 → ENRESERV 18:37
PROVIDERS: ADMIT Internal Medicine; ATTEND Internal Medicine
PROC: 30233N1 Transfusion of Nonautologous Red Blood Cells into Peripheral Vein, Percutaneous Approach (ICD-10-PCS; 2022-04-27)
PROC: 30233R1 Transfusion of Nonautologous Platelets into Peripheral Vein, Percutaneous Approach (ICD-10-PCS; 2022-05-04)
PROC: 05HY33Z Insertion of Infusion Device into Upper Vein, Percutaneous Approach (ICD-10-PCS; principal; 2022-05-07)
PROC: B54MZZA Ultrasonography of Right Upper Extremity Veins, Guidance (ICD-10-PCS; 2022-05-07)
DX: T81.42XA Infection following a procedure, deep incisional surgical site, initial encounter (principal); I81 Portal vein thrombosis; C22.9 Malignant neoplasm of liver, not specified as primary or secondary; D61.818 Other pancytopenia; G97.61 Postprocedural hematoma of a nervous system organ or structure following a nervous system procedure; K76.6 Portal hypertension; E88.09 Other disorders of plasma-protein metabolism, not elsewhere classified; M46.26 Osteomyelitis of vertebra, lumbar region; G97.63 Postprocedural seroma of a nervous system organ or structure following a nervous system procedure; R18.8 Other ascites; K74.60 Unspecified cirrhosis of liver; E11.65 Type 2 diabetes mellitus with hyperglycemia; E11.69 Type 2 diabetes mellitus with other specified complication; G89.29 Other chronic pain; K80.20 Calculus of gallbladder without cholecystitis without obstruction; M47.816 Spondylosis without myelopathy or radiculopathy, lumbar region; N50.89 Other specified disorders of the male genital organs; Z53.29 Procedure and treatment not carried out because of patient's decision for other reasons; M19.90 Unspecified osteoarthritis, unspecified site; R16.1 Splenomegaly, not elsewhere classified; Z20.822 Contact with and (suspected) exposure to COVID-19; Y84.8 Other medical procedures as the cause of abnormal reaction of the patient, or of later complication, without mention of misadventure at the time of the procedure; D72.819 Decreased white blood cell count, unspecified; B19.20 Unspecified viral hepatitis C without hepatic coma; E80.6 Other disorders of bilirubin metabolism; I83.90 Asymptomatic varicose veins of unspecified lower extremity; N28.9 Disorder of kidney and ureter, unspecified; M46.46 Discitis, unspecified, lumbar region; Y92.89 Other specified places as the place of occurrence of the external cause; Z79.84 Long term (current) use of oral hypoglycemic drugs; Y99.8 Other external cause status
CPT/HCPCS: 36415; 36430; 36573; 71045; 72131; 72158; 80048; 80053; 80076; 80202; 80305; 82962; 83036; 85025; 85384; 85651; 86140; 86850; 86900; 87426; 93005; 99285; C1725; C1893; J0696; J1815; J1885; J1940; J2270; J2405; J2543; J3370; J7030; J7060; P9034; P9047; P9035

== ENCOUNTER 2022-09-16 13:23 | Inpatient (IN) | payer MEDICAID ==
[~2022-09-16] VITALS: Ht 167.6 cm; Wt 92.5 kg
[~2022-09-16 13:23] MED LIST changes: +ALD50 PO; +ASCO500T20 PO; -ATOR10TA MT; +CLOT113C TP; +FERR-63 PO; -GLIP10TA10 PO; +HYDR453.3 TP; -METF-416 MT; -SPIR100T5 PO; +TAMS-11 PO; +ZOLP5TAB2 MT
[2022-09-16 19:16] LABS: BASOPHILS % 0.5 % (0.0-2.0); EOSINOPHILS % 4.3 % (0.0-5.0); HEMATOCRIT. 34.5 % (42.0-52.0); HEMOGLOBIN. 11.2 g/dL (14.0-18.0); LYMPHOCYTES % 14.8 % (20.0-50.0); MEAN PLATELET VOLUME 9.2 fl (7.4-10.4); MONOCYTES % 12.7 % (2.0-8.0); NEUTROPHILS % 67.7 % (40.0-76.0); RED BLOOD CELL COUNT 3.41 mill/uL (4.7-6.1); RED CELL DISTRIBUTION WIDTH 18.8 % (11.6-14.6)
[2022-09-16 19:21] LABS: CHLORIDE 104 mEq/L (98-107)
[2022-09-16 19:24] LABS: INR 1.3; PROTHROMBIN TIME 13.7 sec (9.6-11.0)
[2022-09-16 19:43] LABS: PLATELET 48 x1000/uL (130-400)
[2022-09-16] MEDS ORDERED: HYDROCODONE/ACETAMINOPHEN 5/325MG TABLET PO ONE (23:45)
[2022-09-17] MEDS ORDERED: HYDROCODONE/ACETAMINOPHEN 5/325MG TABLET PO NR (02:15)
[2022-09-17] MEDS ORDERED: MORPHINE SULFATE 4 MG/ML CPJ (NOT FOR IM USE) IV ONE (04:15)
[2022-09-17] MEDS ORDERED: ONDANSETRON HCL 4MG/2ML INJ IV ONE (04:15)
[2022-09-17] MEDS ORDERED: DEXTROSE 50% WATER 50ML SYRINGE IV PRN (11:30)
[2022-09-17] MEDS ORDERED: ONDANSETRON HCL 4MG/2ML INJ IV PRN (11:30)
[2022-09-17] MEDS ORDERED: NALOXONE HCL 0.4MG/ML VIAL IV PRN (13:15)
[2022-09-17] MEDS: HYDROCODONE/ACETAMINOPHEN 5/325MG TABLET PO PRN ×3 (13:32→22:39)
[2022-09-17] MEDS: BLOOD SUGAR DIAGNOSTIC STRIP TEST SCH ×3 (13:58→21:15)
[2022-09-17] MEDS: INSULIN LISPRO 100 UNITS/ML SUBCUT SCH ×3 (14:26→21:26)
[2022-09-17] MEDS: FUROSEMIDE 40MG/4ML VIAL IVP SCH (17:53)
[2022-09-17 20:50] LABS: CLARITY URINE CLEAR (CLEAR); COLOR URINE YELLOW (YELLOW); KETONES URINE NEGATIVE (NEGATIVE); LEUKOCYTE ESTERASE URINE NEGATIVE (NEGATIVE); NITRITE URINE NEGATIVE (NEGATIVE); OCCULT BLOOD URINE NEGATIVE (NEGATIVE); PH URINE 6.5 (4.5-8.0); PROTEIN URINE NEGATIVE (NEGATIVE)
[2022-09-18 02:00] VITALS: BP 132/87
[2022-09-18 02:30] VITALS: BP 132/87
[2022-09-18] MEDS: HYDROCODONE/ACETAMINOPHEN 5/325MG TABLET PO PRN ×5 (02:41→22:54)
[2022-09-18 04:00] VITALS: BP 128/52
[2022-09-18] MEDS: BLOOD SUGAR DIAGNOSTIC STRIP TEST SCH ×4 (06:40→21:00)
[2022-09-18] MEDS: SPIRONOLACTONE 50MG TABLET PO SCH (09:00)
[2022-09-18] MEDS: FUROSEMIDE 40MG/4ML VIAL IVP SCH ×3 (09:00→17:00)
[2022-09-18 09:21] LABS: CHLORIDE 106 mEq/L (98-107)
[2022-09-18] MEDS: INSULIN LISPRO 100 UNITS/ML SUBCUT SCH ×4 (09:46→21:00)
[2022-09-18] MEDS ORDERED: SODIUM BICARBONATE 4% (2.4MEQ) 5ML VIAL IV ONE (09:59)
[2022-09-18] MEDS ORDERED: LIDOCAINE HCL 1% 10 MG/ML 10ML VIAL ONE (10:00)
[2022-09-18] MEDS ORDERED: METOLAZONE 2.5MG TABLET PO NR (12:30)
[2022-09-18 17:04] LABS: HEMATOCRIT. 31.5 % (42.0-52.0); HEMOGLOBIN. 10.7 g/dL (14.0-18.0); MEAN CORPUSCULAR VOLUME 97.7 fL (80.0-94.0); MEAN PLATELET VOLUME 9.7 fl (7.4-10.4); RED BLOOD CELL COUNT 3.23 mill/uL (4.7-6.1); RED CELL DISTRIBUTION WIDTH 17.3 % (11.6-14.6)
[2022-09-18 17:20] LABS: CHLORIDE 104 mEq/L (98-107)
[2022-09-18 17:34] LABS: PLATELET 35 x1000/uL (130-400)
[2022-09-18 20:00] VITALS: BP 117/71
[2022-09-18 20:48] LABS: PLATELET ESTIMATE MARKEDLY DECREASED
[2022-09-19] VITALS: BP 94/50
[2022-09-19 04:00] VITALS: BP 113/67
[2022-09-19] MEDS: HYDROCODONE/ACETAMINOPHEN 5/325MG TABLET PO PRN (04:23)
[2022-09-19] MEDS: BLOOD SUGAR DIAGNOSTIC STRIP TEST SCH ×4 (07:20→21:00)
[2022-09-19 08:00] VITALS: BP 90/57
[2022-09-19] MEDS: INSULIN LISPRO 100 UNITS/ML SUBCUT SCH ×4 (08:55→21:00)
[2022-09-19] MEDS ORDERED: METOLAZONE 2.5MG TABLET PO NR (09:00)
[2022-09-19] MEDS ORDERED: HYDROCODONE/ACETAMINOPHEN 5/325MG TABLET PO PRN (11:00)
[2022-09-19] MEDS: FUROSEMIDE 40MG/4ML VIAL IVP SCH ×2 (11:06→17:00)
[2022-09-19] MEDS: SPIRONOLACTONE 50MG TABLET PO SCH (11:07)
[2022-09-19 12:00] VITALS: BP 89/71
[2022-09-19 16:00] VITALS: BP 83/50
[2022-09-19] MEDS: HYDROCODONE/ACETAMINOPHEN 10/325MG TABLET PO PRN (18:01)
[2022-09-19 20:00] VITALS: BP 101/55
[2022-09-19] MEDS: INSULIN GLARGINE 100 UNITS/ML SUBCUT SCH (22:00)
[2022-09-20] VITALS: BP 97/63
[2022-09-20] MEDS: HYDROCODONE/ACETAMINOPHEN 10/325MG TABLET PO PRN ×4 (00:52→22:29)
[2022-09-20 06:21] VITALS: BP 103/66
[2022-09-20 07:07] LABS: CHLORIDE 94 mEq/L (98-107)
[2022-09-20] MEDS: INSULIN LISPRO 100 UNITS/ML SUBCUT SCH ×4 (07:50→21:00)
[2022-09-20 08:00] VITALS: BP 98/55
[2022-09-20] MEDS: SPIRONOLACTONE 50MG TABLET PO SCH (08:12)
[2022-09-20] MEDS: GUAIFENESIN-DM 200MG-20MG/10ML UDC PO PRN ×3 (08:12→22:20)
[2022-09-20] MEDS: FUROSEMIDE 40MG/4ML VIAL IVP SCH ×2 (08:12→17:00)
[2022-09-20] MEDS: BLOOD SUGAR DIAGNOSTIC STRIP TEST SCH ×4 (08:16→21:39)
[2022-09-20] MEDS: INSULIN GLARGINE 100 UNITS/ML SUBCUT SCH ×2 (10:20→22:32)
[2022-09-20 12:00] VITALS: BP 117/73
[2022-09-20 16:00] VITALS: BP 112/74
[2022-09-20 20:00] VITALS: BP 97/67
[2022-09-21] VITALS: BP 98/52
[2022-09-21 04:00] VITALS: BP 100/60
[2022-09-21] MEDS: BLOOD SUGAR DIAGNOSTIC STRIP TEST SCH ×3 (06:24→17:20)
[2022-09-21] MEDS: HYDROCODONE/ACETAMINOPHEN 10/325MG TABLET PO PRN ×2 (06:46→15:13)
[2022-09-21] MEDS: INSULIN LISPRO 100 UNITS/ML SUBCUT SCH ×3 (07:16→18:52)
[2022-09-21 08:00] VITALS: BP 103/63
[2022-09-21] MEDS: INSULIN GLARGINE 100 UNITS/ML SUBCUT SCH (09:28)
[2022-09-21] MEDS: SPIRONOLACTONE 50MG TABLET PO SCH (09:28)
[2022-09-21] MEDS: FUROSEMIDE 40MG/4ML VIAL IVP SCH ×2 (09:28→17:00)
[2022-09-21] MEDS ORDERED: INSU100I28 SQ (09:32)
[2022-09-21] MEDS ORDERED: SPIR100T5 MT (09:32)
[2022-09-21] MEDS ORDERED: FURO-151 MT (09:32)
[2022-09-21] MEDS ORDERED: POTASSIUM CHLORIDE 20MEQ TABLET SR PO SCH (10:00)
[2022-09-21 10:46] VITALS: BP 103/63
[2022-09-21 12:00] VITALS: BP 107/73
[2022-09-21 16:00] VITALS: BP 126/75
== END 2022-09-21 18:45 | disposition home or self-care (01) ==
LOC: ER 13:23 → 6EST 09-17 01:57 → EDBEDREQ 09-17 02:08 → EDBEDREQTM 09-17 02:08
PROVIDERS: ADMIT Internal Medicine; ATTEND Internal Medicine
PROC: 0W9G3ZZ Drainage of Peritoneal Cavity, Percutaneous Approach (ICD-10-PCS; principal; 2022-09-18)
DX: K74.60 Unspecified cirrhosis of liver (principal); E43 Unspecified severe protein-calorie malnutrition; D61.818 Other pancytopenia; R18.8 Other ascites; E87.1 Hypo-osmolality and hyponatremia; Z20.822 Contact with and (suspected) exposure to COVID-19; E11.65 Type 2 diabetes mellitus with hyperglycemia; K40.20 Bilateral inguinal hernia, without obstruction or gangrene, not specified as recurrent; Z85.05 Personal history of malignant neoplasm of liver; Z68.32 Body mass index [BMI] 32.0-32.9, adult; M19.90 Unspecified osteoarthritis, unspecified site
CPT/HCPCS: 36415; 49083; 71045; 73130; 76870; 80048; 80053; 81001; 82962; 85025; 87426; 93005; 93976; 96372; 96374; 96375; 96376; 99285; C9803; J1815; J1940; J2270; J2405; J3490